=== PATIENT | female | born 1965 | race Caucasian/White ===

== ENCOUNTER 2016-10-12 21:20 | Emergency (ER) | payer OTHER ==
[~2016-10-12] VITALS: Ht 157.5 cm; Wt 66.0 kg
[~2016-10-12 21:20] MED LIST: ALAV10TA PO; CIPR750T10 PO; IBUP-238 PO; LEVO50TA4 PO; TRAM50 PO; ZOCO40TA PO; ZOFR4TAB3 SL
[2016-10-12 21:25] VITALS: BP 162/78; PULSE 68; RESP 16; TEMP 97.7; O2SAT 98
[2016-10-13 00:44] VITALS: O2SAT 98
[2016-10-13] MEDS ORDERED: ONDANSETRON HCL 4 MG/2 ML VIAL IV PUSH ONE (00:45)
[2016-10-13] MEDS ORDERED: SODIUM CHLORID 0.9% 500 ML INJ 500 ML IV ONE (00:45)
[2016-10-13] MEDS ORDERED: KETOROLAC TROMETHAMINE 30 MG/ML (IVP) VIAL IV PUSH ONE (00:45)
[2016-10-13 01:11] LABS: AUTOMATED NEUTROPHIL # 4.5 TH/MM3 (1.8-7.7); BASOPHIL % 0.4 % (0.0-2.0); EOSINOPHIL # 0.5 TH/MM3 (0-0.4); EOSINOPHIL % 5.4 % (0.0-4.0); HEMATOCRIT 33.1 % (35.0-46.0); HEMO FLAGS DIFF FINAL; LYMPH % 34.9 % (9.0-44.0); MEAN CELL VOLUME 80.6 FL (80.0-100.0); MEAN CORPUSCULAR HEMOGLOBIN 26.9 PG (27.0-34.0); MEAN CORPUSCULAR HGB CONC 33.3 % (32.0-36.0); MONO % 6.5 % (0.0-8.0); NEUT % 52.8 % (16.0-70.0); PLATELET COUNT 266 TH/MM3 (150-450); RED BLOOD COUNT 4.11 MIL/MM3 (4.00-5.30); RED CELL DISTRIBUTION WIDTH 13.6 % (11.6-17.2); WHITE BLOOD COUNT 8.6 TH/MM3 (4.0-11.0)
[2016-10-13 01:12] LABS: BLOOD, URINE NEG (NEG); GLUCOSE,URINE NEG (NEG); KETONE, URINE NEG (NEG); NITRITE,URINE NEG (NEG); SQUAMOUS EPITHELIAL CELL URINE 2 /hpf (0-5); URINE COLOR COLORLESS (YELLW/STRAW)
[2016-10-13 01:15] LABS: COMMENT (UR) CULT NOT INDICATED; CULTURE IF INDICATED CULT NOT INDICATED
--- NOTE | 2016-10-13 01:19 | PD ---
HPI Chief Complaint: Back/ Neck Pain or Injury Time Seen by Provider: 00:21 Travel History International Travel<30 days: No Contact w/Intl Traveler<30days: No Traveled to known affect area: No History of Present Illness HPI The patient is a 51 year old female who presents to the [facility] emergency department with a history of back pain that she reports began a week ago. The patient reports that the pain has been associated with urinary frequency and urgency. She reports that the pain radiates around to the right side of the abdomen. She reports the pain is similar to when she had a kidney stone in the past. She denies having any blood in her urine. She denies having any vaginal discharge or unusual vaginal bleeding. She reports that her last menstrual cycle was June 2016. She reports having nausea but no vomiting. She denies having any diarrhea. She reports that she last moved her bowels earlier today. The patient denies recent fevers, cough, congestion, neck pain, chest pain, shortness of breath, or neurologic symptoms. [facility] Past Medical History Narrative Medical The patient's past medical history is significant for a history of pancreatitis , anxiety and depression, history of kidney stones, history of headaches, hyperlipidemia, hypothyroid disorder. Arthritis: No Asthma: No Autoimmune Disease: No Blood Disorders: No Anxiety: Yes Depression: Yes Heart Rhythm Problems: No Cancer: No Cardiovascular Problems: No High Cholesterol: No Chest Pain: No Congestive Heart Failure: No COPD: No Cerebrovascular Accident: No Diabetes: No Diminished Hearing: No Endocrine: No Gastrointestinal Disorders: Yes (PANCREATITIS) GERD: No Genitourinary: Yes Headaches: Yes Hepatitis: No Hiatal Hernia: No Hypertension: No Immune Disorder: No Kidney Stones: Yes Musculoskeletal: No Neurologic: No Psychiatric: Yes Reproductive: No Respiratory: No Immunizations Current: Yes Migraines: No Myocardial Infarction: No Pancreatitis: Yes Renal Failure: No Seizures: No Sleep Apnea: No Thyroid Disease: No Ulcer: No PNEUMOCCOCAL Vaccine (Year): 3 ?: Not : 5 Para: 4 : 1 Tubal Ligation: Yes (2003) Past Surgical History Narrative Surgical The patient's past surgical history is significant for 4 prior C-sections, pancreas surgery, tonsillectomy. Abdominal Surgery: Yes (PANCREATIC SURGERY) Appendectomy: No Cardiac Surgery: No Section: Yes (X 4) Cholecystectomy: No Ear Surgery: No Endocrine Surgery: No Eye Surgery: No Gynecologic Surgery: Yes ( X 4) Oral Surgery: No Pacemaker: No Thoracic Surgery: No Tonsillectomy: Yes Social History Alcohol Use: No Tobacco Use: No Substance Use: No Allergies-Medications (Allergen,Severity, Reaction): Coded Allergies: No Known Allergies (Verified , 10/12/16) Reported Meds & Prescriptions Reported Meds & Active Scripts Active Reported Levothyroxine 50 mcg (Levothyroxine Sodium) 50 Mcg Tab 50 Mcg PO DAILY Zocor 40 mg (Simvastatin) 40 Mg Tab 1 Tab PO HS Review of Systems Except as stated in HPI: all other systems reviewed are Neg General / Constitutional: No: Fever Eyes: No: Visual changes HENT: No: Headaches Cardiovascular: No: Chest Pain or Discomfort Respiratory: No: Shortness of Breath Gastrointestinal: Positive: Nausea, Abdominal Pain, No: Vomiting, Diarrhea, Hematemesis, Hematochezia, Constipation, Changes in Bowel Habits, Indigestion, Loss of Appetite Genitourinary: Positive: Urgency, Frequency, Flank Pain, No: Dysuria, Hematuria Musculoskeletal: No: Pain Skin: No Rash Neurologic: No: Weakness, Focal Abnormalities, Change in Mentation, Slurred Speech, Sensory Disturbance Psychiatric: No: Depression Endocrine: No: Polydipsia Hematologic/Lymphatic: No: Easy Bruising Physical Exam Narrative General: The patient is a well-developed well-nourished female in no acute distress. Head and Neck exam: Head is normocephalic atraumatic. Eyes: EOMI, pupils are equal round and reactive to light. Nose: Midline septum with pink mucous membranes Mouth: Dentition unremarkable. Moist mucus membranes. Posterior oropharynx is not erythematous. No tonsillar hypertrophy. Uvula midline. Airway patent. Neck: No palpable lymphadenopathy. No nuchal rigidity. No thyromegaly. Cardiovascular: Regular rate and rhythm without murmurs, gallops, or rubs. No pulse deficit to the extremities. Lungs: Clear to auscultation bilaterally. No wheezes, rhonchi, or rales. Abdomen: Soft, without tenderness to palpation in all 4 quadrants of the abdomen. No guarding, rebound, or rigidity. Normal bowel sounds are audible. No tenderness on palpation of McBurney's point. Negative Clark's sign. Extremities: No clubbing or cyanosis. The patient has trace pedal edema bilateral lower extremities. 2+ pulses in all 4 extremities. No calf tenderness on palpation. Back: No spinous process tenderness to palpation. Right-sided CVA tenderness on palpation. Neurologic Exam: Grossly nonfocal. Skin Exam: No rash noted. Intact skin that is warm and dry. Data Data Last Documented VS Vital Signs Date Time Temp Pulse Resp B/P Pulse Ox O2 Delivery O2 Flow Rate FiO2 10/13/16 00:44 98 Room Air 10/12/16 21:25 97.7 68 16 162/78 Orders Complete Blood Count With Diff (10/13/16 00:31) Comprehensive Metabolic Panel (10/13/16 00:31) C-Reactive Protein (Crp) (10/13/16 00:31) Lipase (10/13/16 00:31) Urinalysis - C+S If Indicated (10/13/16 00:31) Magnesium (Mg) (10/13/16 00:31) Ct Abd/Pel W/O Iv Contrast (10/13/16 00:31) Iv Access Insert/Monitor (10/13/16 00:31) Ecg Monitoring (10/13/16 00:31) Oximetry (10/13/16 00:31) Ed Urine Pregnancytest Poc (10/13/16 00:31) Sodium Chlorid 0.9% 500 Ml Inj (Ns 500 M (10/13/16 00:45) Ketorolac Inj (Toradol Inj) (10/13/16 00:45) Ondansetron Inj (Zofran Inj) (10/13/16 00:45) Labs Laboratory Tests Test 10/13/16 10/13/16 00:55 01:00 Urine Color COLORLESS Urine Turbidity CLEAR Urine pH 7.0 Urine Specific [place] 1.004 Urine Protein NEG mg/dL Urine Glucose (UA) NEG mg/dL Urine Ketones NEG mg/dL Urine Occult Blood NEG Urine Nitrite NEG Urine Bilirubin NEG Urine Urobilinogen LESS THAN 2.0 MG/DL Urine Leukocyte Esterase NEG Urine RBC LESS THAN 1 /hpf Urine WBC 3 /hpf Urine Squamous Epithelial 2 /hpf Cells Microscopic Urinalysis Comment CULT NOT INDICATED White Blood Count 8.6 TH/MM3 Red Blood Count 4.11 MIL/MM3 Hemoglobin 11.1 GM/DL Hematocrit 33.1 % Mean Corpuscular Volume 80.6 FL Mean Corpuscular Hemoglobin 26.9 PG Mean Corpuscular Hemoglobin 33.3 % Concent Red Cell Distribution Width 13.6 % Platelet Count 266 TH/MM3 Mean Platelet Volume 7.8 FL Neutrophils (%) (Auto) 52.8 % Lymphocytes (%) (Auto) 34.9 % Monocytes (%) (Auto) 6.5 % Eosinophils (%) (Auto) 5.4 % Basophils (%) (Auto) 0.4 % Neutrophils # (Auto) 4.5 TH/MM3 Lymphocytes # (Auto) 3.0 TH/MM3 Monocytes # (Auto) 0.6 TH/MM3 Eosinophils # (Auto) 0.5 TH/MM3 Basophils # (Auto) 0.0 TH/MM3 CBC Comment DIFF FINAL Differential Comment Sodium Level 139 MEQ/L Potassium Level 3.5 MEQ/L Chloride Level 108 MEQ/L Carbon Dioxide Level 25.2 MEQ/L Anion Gap 6 MEQ/L Blood Urea Nitrogen 15 MG/DL Creatinine 0.69 MG/DL Estimat Glomerular Filtration 90 ML/MIN Rate Random Glucose 95 MG/DL Calcium Level 8.2 MG/DL Magnesium Level 2.2 MG/DL Total Bilirubin 0.4 MG/DL Aspartate Amino Transf 19 U/L (AST/SGOT) Alanine Aminotransferase 29 U/L (ALT/SGPT) Alkaline Phosphatase 96 U/L C-Reactive Protein 0.56 MG/DL Total Protein 7.4 GM/DL Albumin 3.2 GM/DL Lipase 289 U/L [facility] Medical Decision Making Medical Screen Exam Complete: Yes Emergency Medical Condition: Yes Medical Record Reviewed: Yes Interpretation(s) Last Impressions Abdomen/Pelvis CT 10/13/16 0031 Signed Impressions: Service Date/Time: Thursday, October 13, 2016 01:44 - CONCLUSION: Stone within the right kidney. Cholecystectomy clips. No etiology for abdominal pain identified Wilman Blackwell MD Differential Diagnosis Pyelonephritis, versus kidney stone, versus musculoskeletal strain, versus appendicitis Narrative Course During the course of the patients emergency department visit, the patients history, examination, and differential diagnosis were reviewed with the patient. The patient had IV access obtained and blood work sent for analysis. The patient was placed on a youth nutritional monitor with oximetry and blood pressure monitoring. A CT scan of the abdomen and pelvis was ordered. The patient was initially provided normal saline a 500 mL bolus 1, Toradol 15 mg IV, Zofran 4 mg IV. The patients laboratory studies were reviewed and remarkable for a white count of 8.6, hemoglobin 11.1, platelets 266 with 5.4 eosinophils, CMP is remarkable for chloride of 108, calcium 8.2, C-reactive protein 0.56, lipase 289, urinalysis within normal limits Radiology studies were reviewed and remarkable for a CT scan of the abdomen and pelvis that shows a stone within the right kidney, cholecystectomy clips, no etiology for abdominal pain identified. The patient's symptoms could be related to musculoskeletal strain, versus renal colic from the right sided kidney stone. The patient will be discharged home with a prescription for pain medication and close follow-up with her primary care physician. The patient is resting comfortably and feels better, is alert and in no distress. The patients results and examination findings were discussed with the patient. The repeat examination is unremarkable and benign. The history, exam, diagnostic testing, and current condition do not suggest any significant pathology to warrant further testing, continued ED treatment, admission, or surgical evaluation at this point. The vital signs have been stable. The patient does not have uncontrollable pain, intractable vomiting, or other significant symptoms. The patient's condition is stable and appropriate for discharge. The patient will pursue further outpatient evaluation with a primary care physician or other designated or consulting physician as indicated in the discharge instructions. The patient expressed understanding and was agreeable with this plan. Diagnosis Primary Impression: Renal colic on right side Referrals: Primary Care Physician 3 days Patient Instructions: General Instructions, Renal Colic (ED) Med/Other Pt SpecificInfo: Prescription(s) given Scripts Naproxen DR (Naproxen EC)500 Mg [id number] Mg PO BID PRN (PAIN SCALE 1 TO 4) #10 TAB Ref 0 Prov:Kanika Dorantes MD 10/13/16 Hydrocodone-Acetaminophen (Lortab)5-325 Mg Tab1 Tab PO Q6H PRN (PAIN GREATER THAN 5) #12 TAB Ref 0 Prov:Kanika Dorantes MD 10/13/16 Disposition: DISCHARGE HOME Condition: Stable Kanika Dorantes MD Oct 13, 2016 01:18
[2016-10-13 01:32] LABS: ANION GAP 6 MEQ/L (5-15); AST (GOT) 19 U/L (15-37); BICARBONATE 25.2 MEQ/L (21.0-32.0); BLOOD UREA NITROGEN 15 MG/DL (7-18); CHLORIDE 108 MEQ/L (98-107); GLOMERULAR FILTRATION RATE 90 ML/MIN (>89); MAGNESIUM 2.2 MG/DL (1.5-2.5); POTASSIUM 3.5 MEQ/L (3.5-5.1); SODIUM (NA) 139 MEQ/L (136-145)
[2016-10-13 01:34] LABS: ALKALINE PHOSPHATASE 96 U/L (45-117); ALT (GPT) 29 U/L (10-53); TOTAL BILIRUBIN ADULT 0.4 MG/DL (0.2-1.0)
--- NOTE | 2016-10-13 01:57 | RADRPT ---
EXAM DATE/TIME: 10/13/2016 01:44 [facility] COMPARISON: CT ABDOMEN & PELVIS W/O CONTRAST, February 13, 2016, 12:48. INDICATIONS : Lower back pain radiating down legs. ORAL CONTRAST: No oral contrast ingested. RADIATION DOSE: 10.82 CTDIvol (mGy) MEDICAL HISTORY : Pancreatitis. SURGICAL HISTORY : Tonsillectomy. section.Tubal ligation.Pancreatic surgery. ENCOUNTER: Initial ACUITY: 2 days PAIN SCALE: 5/10 LOCATION: Bilateral flank TECHNIQUE: Volumetric scanning of the abdomen and pelvis was performed. Using automated exposure control and ad justment of the mA and/or kV according to patient size, radiation dose was kept as low as reasonably achievable to obtain optimal diagnostic quality images. FINDINGS: LOWER LUNGS: The visualized lower lungs are clear. LIVER: Homogeneous density without lesion. There is no dilation of the biliary tree. Status post cholecyste ctomy. SPLEEN: Normal size without lesion. PANCREAS: Within normal limits. KIDNEYS: Normal in size and shape. There is no mass, or hydronephrosis. Small stone mid pole right kidney ADRENAL GLANDS: Within normal limits. VASCULAR: There is no aortic aneurysm. BOWEL/MESENTERY: The stomach, small bowel, and colon demonstrate no acute abnormality. There is no free intraperitone al air or fluid. ABDOMINAL WALL: Within normal limits. RETROPERITONEUM: There is no lymphadenopathy. BLADDER: No wall thickening or mass. REPRODUCTIVE: Within normal limits. Low-density cysts within the cervix likely nabothian cysts. Bilateral ovarian c ysts left greater than right. INGUINAL: There is no lymphadenopathy or hernia. MUSCULOSKELETAL: Within normal limits for patient age. CONCLUSION: Stone within the right kidney. Cholecystectomy clips. No etiology for abdominal pain identified Wilman Blackwell MD on October 13, 2016 at 1:54 Board Certified Radiologist. This report was verified electronically.
[2016-10-13] MEDS ORDERED: HYDR-3533 PO (02:33)
[2016-10-13] MEDS ORDERED: NAPR1TAB34 PO (02:33)
[2016-12-24] MEDS ORDERED: FEXO180T PO (08:44)
[2016-12-24] MEDS ORDERED: FLUT50SP EACH NARE (08:44)
[2016-12-24] MEDS ORDERED: MELO7.5T4 PO (08:44)
[2016-12-24] MEDS ORDERED: ZOCO20TA PO (08:44)
[2016-12-24] MEDS ORDERED: LEVO75TA3 PO (08:44)
== END 2016-10-13 03:51 | disposition home or self-care (01) ==
LOC: NEPE 21:20
DX: N23 Unspecified renal colic (principal); R11.0 Nausea; M54.2 Cervicalgia; K85.90 Acute pancreatitis without necrosis or infection, unspecified
CPT/HCPCS: 74176; 80053; 81001; 83690; 83735; 84703; 85025; 86140; 96361; 96374; 96375; 99284; J1885; J2405; J7040

== ENCOUNTER 2016-11-08 15:34 | Emergency (ER) | payer OTHER ==
[~2016-11-08] VITALS: Ht 149.9 cm; Wt 70.5 kg
[~2016-11-08 15:34] MED LIST changes: -ALAV10TA PO; -CIPR750T10 PO; +HYDR-3533 PO; -IBUP-238 PO; +NAPR1TAB34 PO; -TRAM50 PO; -ZOFR4TAB3 SL
[2016-11-08 17:10] LABS: BLOOD, URINE LARGE (NEG); GLUCOSE,URINE NEG (NEG); KETONE, URINE NEG (NEG); NITRITE,URINE NEG (NEG); PH, URINE 6.5 (5.0-8.5); SQUAMOUS EPITHELIAL CELL URINE 9 /hpf (0-5); URINE COLOR YELLOW (YELLW/STRAW)
[2016-11-08] MEDS ORDERED: SODIUM CHLORIDE 0.9% FLUSH 10 ML FLUSH IV FLUSH PRN (18:15)
[2016-11-08] MEDS ORDERED: KETOROLAC TROMETHAMINE 30 MG/ML (IVP) VIAL IVP ONE (18:15)
[2016-11-08 18:31] LABS: AUTOMATED NEUTROPHIL # 3.8 TH/MM3 (1.8-7.7); BASOPHIL % 0.3 % (0.0-2.0); EOSINOPHIL # 0.4 TH/MM3 (0-0.4); EOSINOPHIL % 5.3 % (0.0-4.0); HEMATOCRIT 34.5 % (35.0-46.0); HEMO FLAGS DIFF FINAL; LYMPH % 39.4 % (9.0-44.0); LYMPHOCYTE # 3.2 TH/MM3 (1.0-4.8); MEAN CELL VOLUME 80.7 FL (80.0-100.0); MEAN CORPUSCULAR HEMOGLOBIN 26.8 PG (27.0-34.0); MEAN CORPUSCULAR HGB CONC 33.2 % (32.0-36.0); MONO % 7.3 % (0.0-8.0); NEUT % 47.7 % (16.0-70.0); PLATELET COUNT 272 TH/MM3 (150-450); RED BLOOD COUNT 4.27 MIL/MM3 (4.00-5.30); RED CELL DISTRIBUTION WIDTH 13.9 % (11.6-17.2)
[2016-11-08 18:49] LABS: BICARBONATE 27.8 MEQ/L (21.0-32.0); POTASSIUM 3.4 MEQ/L (3.5-5.1)
[2016-11-08 19:15] VITALS: RESP 16
[2016-11-08] MEDS ORDERED: MOBI15TA PO (19:33)
--- NOTE | 2016-11-08 19:33 | PD ---
HPI Chief Complaint: Flank/Kidney Pain Time Seen by Provider: 16:45 Travel History International Travel<30 days: No Contact w/Intl Traveler<30days: No Traveled to known affect area: No History of Present Illness HPI 51 year old female with a 3 day hx of right flank pain & hematuria. Patient has hx of kidney stones on the right side. She denies fever, chills, dysuria, ABD pain, or N/V. She has been seen multiple times in the ED for the same complaint. Last 2 CT scans show a 4mm stone within the R kidney, no obstruction. PMH:nephrolithiasis, hyperlipidemia, hypothyroid. Home meds: levothyroxine & norco PRN. PFSH Past Medical History Arthritis: No Asthma: No Autoimmune Disease: No Blood Disorders: No Anxiety: Yes Depression: Yes Heart Rhythm Problems: No Cancer: No Cardiovascular Problems: No High Cholesterol: No Chest Pain: No Congestive Heart Failure: No COPD: No Cerebrovascular Accident: No Diabetes: No Diminished Hearing: No Endocrine: No Gastrointestinal Disorders: Yes (PANCREATITIS) GERD: No Genitourinary: Yes Headaches: Yes Hepatitis: No Hiatal Hernia: No Hypertension: No Immune Disorder: No Kidney Stones: Yes Musculoskeletal: No Neurologic: No Psychiatric: Yes Reproductive: No Respiratory: No Immunizations Current: Yes Migraines: No Myocardial Infarction: No Pancreatitis: Yes Renal Failure: No Seizures: No Sleep Apnea: No Thyroid Disease: No Ulcer: No PNEUMOCCOCAL Vaccine (Year): 3 ?: Not : 5 Para: 4 : 1 Tubal Ligation: Yes (2003) Past Surgical History Abdominal Surgery: Yes (PANCREATIC SURGERY) Appendectomy: No Cardiac Surgery: No Section: Yes (X 4) Cholecystectomy: No Ear Surgery: No Endocrine Surgery: No Eye Surgery: No Gynecologic Surgery: Yes ( X 4) Oral Surgery: No Pacemaker: No Thoracic Surgery: No Tonsillectomy: Yes Social History Alcohol Use: No Tobacco Use: No Substance Use: No Allergies-Medications (Allergen,Severity, Reaction): Coded Allergies: No Known Allergies (Verified , 10/12/16) Reported Meds & Prescriptions Reported Meds & Active Scripts Active Mobic (Meloxicam) 15 Mg Tab 15 Mg PO DAILY PRN Naproxen EC (Naproxen) 500 Mg Tabdr 500 Mg PO BID PRN Lortab (Hydrocodone-Acetaminophen) 5-325 Mg Tab 1 Tab PO Q6H PRN Reported Levothyroxine 50 mcg (Levothyroxine Sodium) 50 Mcg Tab 50 Mcg PO DAILY Zocor 40 mg (Simvastatin) 40 Mg Tab 1 Tab PO HS Review of Systems Except as stated in HPI: all other systems reviewed are Neg Physical Exam Narrative GENERAL: well appearing female. No distress SKIN: Warm and dry. HEAD: Normocephalic. EYES: No scleral icterus. No injection or drainage. NECK: Supple, trachea midline. No JVD or lymphadenopathy. CARDIOVASCULAR: Regular rate and rhythm without murmurs, gallops, or rubs. RESPIRATORY: Breath sounds equal bilaterally. No accessory muscle use. GASTROINTESTINAL: Abdomen soft, non-tender, nondistended. MUSCULOSKELETAL: No cyanosis, or edema. BACK: Nontender without obvious deformity. Mild R CVA tenderness. Data Data Last Documented VS Vital Signs Date Time Temp Pulse Resp B/P Pulse Ox O2 Delivery O2 Flow Rate FiO2 11/08/16 19:15 16 Orders Ua Includes Microscopic (11/08/16 16:41) Ed Poc Ultrasound (11/08/16 ) Basic Metabolic Panel (Bmp) (11/08/16 18:04) Complete Blood Count With Diff (11/08/16 18:04) Iv Access Insert/Monitor (11/08/16 18:04) Sodium Chloride 0.9% Flush (Ns Flush) (11/08/16 18:15) Ketorolac Inj (Toradol Inj) (11/08/16 18:15) Labs Laboratory Tests Test 11/08/16 11/08/16 16:45 18:12 Urine Color YELLOW Urine Turbidity HAZY Urine pH 6.5 Urine Specific [place] 1.016 Urine Protein NEG mg/dL Urine Glucose (UA) NEG mg/dL Urine Ketones NEG mg/dL Urine Occult Blood LARGE Urine Nitrite NEG Urine Bilirubin NEG Urine Urobilinogen LESS THAN 2.0 MG/DL Urine Leukocyte Esterase NEG Urine RBC 5 /hpf Urine WBC 5 /hpf Urine Squamous Epithelial 9 /hpf Cells Microscopic Urinalysis Comment White Blood Count 8.0 TH/MM3 Red Blood Count 4.27 MIL/MM3 Hemoglobin 11.4 GM/DL Hematocrit 34.5 % Mean Corpuscular Volume 80.7 FL Mean Corpuscular Hemoglobin 26.8 PG Mean Corpuscular Hemoglobin 33.2 % Concent Red Cell Distribution Width 13.9 % Platelet Count 272 TH/MM3 Mean Platelet Volume 8.2 FL Neutrophils (%) (Auto) 47.7 % Lymphocytes (%) (Auto) 39.4 % Monocytes (%) (Auto) 7.3 % Eosinophils (%) (Auto) 5.3 % Basophils (%) (Auto) 0.3 % Neutrophils # (Auto) 3.8 TH/MM3 Lymphocytes # (Auto) 3.2 TH/MM3 Monocytes # (Auto) 0.6 TH/MM3 Eosinophils # (Auto) 0.4 TH/MM3 Basophils # (Auto) 0.0 TH/MM3 CBC Comment DIFF FINAL Differential Comment Sodium Level 143 MEQ/L Potassium Level 3.4 MEQ/L Chloride Level 109 MEQ/L Carbon Dioxide Level 27.8 MEQ/L Anion Gap 6 MEQ/L Blood Urea Nitrogen 16 MG/DL Creatinine 0.67 MG/DL Estimat Glomerular Filtration 94 ML/MIN Rate Random Glucose 107 MG/DL Calcium Level 8.0 MG/DL MDM Medical Decision Making Medical Screen Exam Complete: Yes Emergency Medical Condition: Yes Medical Record Reviewed: Yes Differential Diagnosis nephrolithiasis vs hydronephrosis vs pyelonephrosis Narrative Course 51 year old female with a 3 days hx of right flank pain. Hx of intermittent right flank pain, treated multiple times for same. She is well appearing, mild discomfort with CVA palpation only. EMR reviewed. CBC: unremarkable w/ exception of Hgb 11 BMP: unremarkable UA : 5 RBC, -leuk, -nitrates US R kidney: no hydronephrosis given patients exam & diagnostic findings patient will be discharged home with Dx of R flank pain, no evidence of infection or obstruction, NSAID for pain. F/ U with PCP/Nephrology. Diagnosis Primary Impression: Right flank pain Referrals: Kaylin Salazar MD Patient Instructions: General Instructions Med/Other Pt SpecificInfo: Prescription(s) given Scripts Meloxicam (Mobic)15 Mg Tab15 Mg PO DAILY PRN (PAIN SCALE 1 TO 5) #10 TAB Ref 0 Prov:Katharina Irizarry 11/08/16 Disposition: 01 DISCHARGE HOME Condition: Stable Katharina Irizarry November 08, 2016 19:33 Katharina Irizarry November 08, 2016 19:33
--- NOTE | 2016-11-08 20:56 | PD ---
Data Data Last Documented VS Vital Signs Date Time Temp Pulse Resp B/P Pulse Ox O2 Delivery O2 Flow Rate FiO2 11/08/16 19:15 16 Orders Ua Includes Microscopic (11/08/16 16:41) Ed Poc Ultrasound (11/08/16 ) Basic Metabolic Panel (Bmp) (11/08/16 18:04) Complete Blood Count With Diff (11/08/16 18:04) Iv Access Insert/Monitor (11/08/16 18:04) Sodium Chloride 0.9% Flush (Ns Flush) (11/08/16 18:15) Ketorolac Inj (Toradol Inj) (11/08/16 18:15) Labs Laboratory Tests Test 11/08/16 11/08/16 16:45 18:12 Urine Color YELLOW Urine Turbidity HAZY Urine pH 6.5 Urine Specific [place] 1.016 Urine Protein NEG mg/dL Urine Glucose (UA) NEG mg/dL Urine Ketones NEG mg/dL Urine Occult Blood LARGE Urine Nitrite NEG Urine Bilirubin NEG Urine Urobilinogen LESS THAN 2.0 MG/DL Urine Leukocyte Esterase NEG Urine RBC 5 /hpf Urine WBC 5 /hpf Urine Squamous Epithelial 9 /hpf Cells Microscopic Urinalysis Comment White Blood Count 8.0 TH/MM3 Red Blood Count 4.27 MIL/MM3 Hemoglobin 11.4 GM/DL Hematocrit 34.5 % Mean Corpuscular Volume 80.7 FL Mean Corpuscular Hemoglobin 26.8 PG Mean Corpuscular Hemoglobin 33.2 % Concent Red Cell Distribution Width 13.9 % Platelet Count 272 TH/MM3 Mean Platelet Volume 8.2 FL Neutrophils (%) (Auto) 47.7 % Lymphocytes (%) (Auto) 39.4 % Monocytes (%) (Auto) 7.3 % Eosinophils (%) (Auto) 5.3 % Basophils (%) (Auto) 0.3 % Neutrophils # (Auto) 3.8 TH/MM3 Lymphocytes # (Auto) 3.2 TH/MM3 Monocytes # (Auto) 0.6 TH/MM3 Eosinophils # (Auto) 0.4 TH/MM3 Basophils # (Auto) 0.0 TH/MM3 CBC Comment DIFF FINAL Differential Comment Sodium Level 143 MEQ/L Potassium Level 3.4 MEQ/L Chloride Level 109 MEQ/L Carbon Dioxide Level 27.8 MEQ/L Anion Gap 6 MEQ/L Blood Urea Nitrogen 16 MG/DL Creatinine 0.67 MG/DL Estimat Glomerular Filtration 94 ML/MIN Rate Random Glucose 107 MG/DL Calcium Level 8.0 MG/DL MDM Supervised Visit with SONJA: Yes Narrative Course The history, exam, and medical decision-making in the associated midlevel provider note were completed with my assistance. I reviewed and agree with the findings presented. I attest that I had a [id number] encounter with the patient on the same day, and personally performed and documented my assessment and findings in the medical record. *My assessment and Findings: This is a 51-year-old female who presents to the emergency department with right flank pain. She's had this multiple times in the past. Multiple times in the past she's had CT scans which demonstrate a stone in the right kidney but they've never demonstrated a ureteral stones explain the patient's pain. I suspect her pain is musculoskeletal in nature. She does have a little bit of red blood cells urine. I told her she should follow-up with the urologist as an outpatient to be evaluated for possible bladder cancer. She was given Toradol and she feels much better. I did perform a bedside ultrasound which demonstrates no hydronephrosis. Don't think a repeat CT imaging would benefit this patient given she's had some any CTs in the past but don't give an explanation for her pain. Patient feels much better upon discharge. Diagnosis Primary Impression: Right flank pain Referrals: Kaylin Salazar MD Patient Instructions: General Instructions Departure Forms: Tests/Procedures Scripts Meloxicam (Mobic)15 Mg Tab15 Mg PO DAILY PRN (PAIN SCALE 1 TO 5) #10 TAB Ref 0 Prov:Katharina IrizarryP 11/08/16 Disposition: 01 DISCHARGE HOME Condition: Stable Misty Arce MD November 08, 2016 20:56
[2016-12-24] MEDS ORDERED: ZOCO20TA PO (08:44)
[2016-12-24] MEDS ORDERED: FEXO180T PO (08:44)
[2016-12-24] MEDS ORDERED: MELO7.5T4 PO (08:44)
[2016-12-24] MEDS ORDERED: LEVO75TA3 PO (08:44)
[2016-12-24] MEDS ORDERED: FLUT50SP EACH NARE (08:44)
== END 2016-11-08 20:17 | disposition home or self-care (01) ==
LOC: NEPD 15:34
DX: R10.9 Unspecified abdominal pain (principal)
CPT/HCPCS: 80048; 81001; 85025; 96374; 99284; J1885

== ENCOUNTER → 2017-01-14 | Day surgery (SDC) | payer OTHER ==
[~2017-01-14] VITALS: Ht 149.9 cm; Wt 71.5 kg
[~2017-01-14] MED LIST changes: +ACETAMINOPHEN/HYDROcodone 325 MG/5 MG TAB ONE; +ACETAMINOPHEN/HYDROcodone 325 MG/5 MG TAB PO PRN; +DO NOT ADM ANY ANTICOAGULANT DRUGS PRN; +FEXO180T PO; +FLUT50SP EACH NARE; -HYDR-3533 PO; +HYDR-3534 PO; +LACTATED RINGER'S 1000 ML INJ 1,000 ML ONE; -LEVO50TA4 PO; +LEVO75TA3 PO; +MIDAZOLAM HCL 2 MG/2 ML VIAL ONE; +MORPHINE SULFATE 4 MG/ML INJ IV PUSH PRN; -NAPR1TAB34 PO; +ONDANSETRON HCL 4 MG/2 ML VIAL IV PUSH PRN; +PROPOFOL 200 MG/20 ML AMP IV ONE; +SODIUM CHLORIDE 0.9% INJ 100 ML ONE; +ZOCO20TA PO; -ZOCO40TA PO; +ceFAZolin INJ 1,000 MG VIAL ONE
[2017-01-14 06:24] LABS: AUTOMATED NEUTROPHIL # 3.3 TH/MM3 (1.8-7.7); BASOPHIL % 0.6 % (0.0-2.0); EOSINOPHIL # 0.4 TH/MM3 (0-0.4); EOSINOPHIL % 5.2 % (0.0-4.0); HEMATOCRIT 33.6 % (35.0-46.0); HEMO FLAGS DIFF FINAL; LYMPH % 35.2 % (9.0-44.0); LYMPHOCYTE # 2.4 TH/MM3 (1.0-4.8); MEAN CELL VOLUME 81.7 FL (80.0-100.0); MEAN CORPUSCULAR HEMOGLOBIN 27.7 PG (27.0-34.0); MEAN CORPUSCULAR HGB CONC 33.9 % (32.0-36.0); PLATELET COUNT 292 TH/MM3 (150-450); RED BLOOD COUNT 4.11 MIL/MM3 (4.00-5.30); RED CELL DISTRIBUTION WIDTH 13.5 % (11.6-17.2); WHITE BLOOD COUNT 6.8 TH/MM3 (4.0-11.0)
[2017-01-14 06:26] VITALS: BP 109/75; PULSE 65; RESP 16; TEMP 97.6; O2SAT 98
--- NOTE | 2017-01-14 06:30 | RADRPT ---
EXAM DATE/TIME: 01/14/2017 05:49 [facility] COMPARISON: No previous studies available for comparison. INDICATIONS : Pre op lithotripsy. MEDICAL HISTORY : None. SURGICAL HISTORY : None. ENCOUNTER: Initial ACUITY: 1 day PAIN SCORE: 0/10 LOCATION: Bilateral abdomen FINDINGS: Supine view of the abdomen was performed. The abdominal bowel gas pattern is normal. 6 mm calcificat ion overlying the midpole right kidney. No definite calcifications overlying the left kidney. Surgica l clips in the quadrant.. The osseous structures are unremarkable. CONCLUSION: 6 mm calcification midpole right kidney. Matthew Bazan MD on January 14, 2017 at 6:28 Board Certified Radiologist. This report was verified electronically.
--- NOTE | 2017-01-14 08:30 | PD.OP ---
Operative Report Date of Surgery: Jan 14, 2017 Preoperative Diagnosis: Right lower pole renal stone Postoperative Diagnosis: Same Procedure: Right extracorporeal shockwave lithotripsy Anesthesia: TIVA Surgeon: Sachin Gonzalez [employer] Tester(s): None Resident Surgeon: None Operation and Findings: 52-year-old female with findings of 5.6 mm right lower pole stone admitted to undergo elective extracorporeal shockwave lithotripsy. Risk and benefits were discussed preoperatively and the patient is willing to proceed. Patient was brought to the operating room and identified by myself as Janis Haro. She was placed in supine position on the operating table, received TIVA anesthesia, and preprocedure bites were given. Stone was localized under fluoroscopic and ultrasonic image guidance. Patient then went on to receive a total of 2500 shocks with good fragmentation of stone visualized. She tolerated the procedure well and was woken and transferred recovery room in stable condition. She'll follow-up in 2 weeks and obtain a KUB x-ray prior. Sachin Gonzalez DO Jan 14, 2017 08:30
--- NOTE | 2017-01-14 08:37 | EKG ---
Date Performed: 01/14/2017 Time Performed: 06:18:40 PTAGE: 52 years EKG: Sinus rhythm NORMAL ECG PREVIOUS TRACING : 01/02/2015 21.05 DOCTOR: Wilman Pinto Interpretating Date/Time 01/14/2017 08:35:30
[2017-01-14 09:55] VITALS: BP 92/60; PULSE 64; RESP 20; TEMP 97.7; O2SAT 99
== END | disposition home or self-care (01) ==
LOC: HSDC 05:11
PROVIDERS: ATTEND Urology
DX: N20.0 Calculus of kidney (principal); Z01.810 Encounter for preprocedural cardiovascular examination
CPT/HCPCS: 50590; 74000; 85025; 93005; J0690; J2250; J7120

== ENCOUNTER 2017-02-10 19:06 | Observation (INO) | payer OTHER ==
[~2017-02-10 19:06] MED LIST changes: -ACETAMINOPHEN/HYDROcodone 325 MG/5 MG TAB ONE; -ACETAMINOPHEN/HYDROcodone 325 MG/5 MG TAB PO PRN; -DO NOT ADM ANY ANTICOAGULANT DRUGS PRN; -LACTATED RINGER'S 1000 ML INJ 1,000 ML ONE; -MIDAZOLAM HCL 2 MG/2 ML VIAL ONE; -MORPHINE SULFATE 4 MG/ML INJ IV PUSH PRN; -ONDANSETRON HCL 4 MG/2 ML VIAL IV PUSH PRN; -PROPOFOL 200 MG/20 ML AMP IV ONE; -SODIUM CHLORIDE 0.9% INJ 100 ML ONE; -ceFAZolin INJ 1,000 MG VIAL ONE
[2017-02-10 19:09] VITALS: BP 153/73; PULSE 82; RESP 16; TEMP 97.5; O2SAT 99
[2017-02-10 22:55] VITALS: BP 140/81; PULSE 71; RESP 14; O2SAT 99
[2017-02-10] MEDS ORDERED: ONDANSETRON HCL 4 MG/2 ML VIAL IVP ONE (23:00)
[2017-02-10] MEDS ORDERED: SODIUM CHLORIDE 0.9% FLUSH 10 ML FLUSH IV FLUSH PRN (23:00)
[2017-02-10] MEDS ORDERED: SODIUM CHLOR 0.9% 1000 ML INJ 1,000 ML IV SCH (23:00)
[2017-02-10] MEDS ORDERED: MORPHINE SULFATE 8 MG/ML INJ IV PUSH ONE (23:00)
[2017-02-10 23:41] LABS: AUTOMATED NEUTROPHIL # 4.3 TH/MM3 (1.8-7.7); BASOPHIL % 0.5 % (0.0-2.0); EOSINOPHIL # 0.4 TH/MM3 (0-0.4); EOSINOPHIL % 4.2 % (0.0-4.0); HEMATOCRIT 32.2 % (35.0-46.0); HEMO FLAGS DIFF FINAL; LYMPH % 35.8 % (9.0-44.0); MEAN CELL VOLUME 80.4 FL (80.0-100.0); MEAN CORPUSCULAR HEMOGLOBIN 28.1 PG (27.0-34.0); MEAN CORPUSCULAR HGB CONC 34.9 % (32.0-36.0); MONO % 8.5 % (0.0-8.0); PLATELET COUNT 286 TH/MM3 (150-450); WHITE BLOOD COUNT 8.4 TH/MM3 (4.0-11.0)
[2017-02-11 00:13] LABS: ANION GAP 8 MEQ/L (5-15)
[2017-02-11 00:16] LABS: ALKALINE PHOSPHATASE 114 U/L (45-117); ALT (GPT) 36 U/L (10-53); AST (GOT) 22 U/L (15-37); BICARBONATE 24.4 MEQ/L (21.0-32.0); BLOOD UREA NITROGEN 13 MG/DL (7-18); CHLORIDE 106 MEQ/L (98-107); GLOMERULAR FILTRATION RATE 82 ML/MIN (>89); SODIUM (NA) 138 MEQ/L (136-145); TOTAL BILIRUBIN ADULT 0.4 MG/DL (0.2-1.0)
[2017-02-11 00:17] LABS: POTASSIUM 2.9 MEQ/L (3.5-5.1)
--- NOTE | 2017-02-11 00:44 | PD ---
HPI Chief Complaint: Abdominal Pain Time Seen by Provider: 22:47 Travel History International Travel<30 days: No Contact w/Intl Traveler<30days: No Traveled to known affect area: No History of Present Illness HPI 52-year-old female said about a day and a half of increasing abdominal pain. The pain is now constant. It's located in the right lower abdomen. Associated symptoms include nausea. The pain is worse with palpation. No similar prior pain has occurred. She's had no fever or diarrhea or vomiting. There is no radiation. Urination has been normal. PFSH Past Medical History Arthritis: No Asthma: No Autoimmune Disease: No Blood Disorders: No Anxiety: Yes Depression: Yes Heart Rhythm Problems: No Cancer: No Cardiovascular Problems: No High Cholesterol: No Chest Pain: No Congestive Heart Failure: No COPD: No Cerebrovascular Accident: No Diabetes: No Diminished Hearing: No Endocrine: No Gastrointestinal Disorders: Yes (PANCREATITIS) GERD: No Genitourinary: No Headaches: Yes Hepatitis: No Hiatal Hernia: No Hypertension: No Immune Disorder: No Kidney Stones: Yes Musculoskeletal: No Neurologic: No Psychiatric: No Reproductive: No Respiratory: No Immunizations Current: Yes Migraines: No Myocardial Infarction: No Pancreatitis: Yes Renal Failure: No Seizures: No Sleep Apnea: No Thyroid Disease: Yes Ulcer: No Influenza Vaccination: No PNEUMOCCOCAL Vaccine (Year): 3 ?: Not : 5 Para: 4 : 1 Tubal Ligation: Yes (2003) Past Surgical History Abdominal Surgery: Yes (PANCREATIC SURGERY) AICD: No Appendectomy: No Cardiac Surgery: No Section: Yes (X 4) Cholecystectomy: No Ear Surgery: No Endocrine Surgery: No Eye Surgery: No Gynecologic Surgery: Yes ( X 4) Joint Replacement: No Oral Surgery: No Pacemaker: No Thoracic Surgery: No Tonsillectomy: Yes Other Surgery: Yes Social History Alcohol Use: No Tobacco Use: No Substance Use: No Allergies-Medications (Allergen,Severity, Reaction): Coded Allergies: No Known Allergies (Verified , 02/06/17) Reported Meds & Prescriptions Reported Meds & Active Scripts Active Reported Fluticasone Nasal [place] 50 Mcg/Act Naspr 50 Mcg EACH NARE BID 50 mcg/spray Fexofenadine (Fexofenadine HCl) 180 Mg Tab 180 Mg PO DAILY PRN Zocor (Simvastatin) 20 Mg Tab 20 Mg PO DAILY Levothyroxine (Levothyroxine Sodium) 75 Mcg Tab 75 Mcg PO DAILY Review of Systems Except as stated in HPI: all other systems reviewed are Neg Physical Exam Narrative GENERAL: 52-year-old female well-nourished well-developed, Indian-speaking, patient chose to have translation provided by family member in the exam room SKIN: Warm and dry. HEAD: Atraumatic. Normocephalic. EYES: Pupils equal and round. No scleral icterus. No injection or drainage. ENT: No nasal bleeding or discharge. Mucous membranes pink and moist. NECK: Trachea midline. No JVD. CARDIOVASCULAR: Regular rate and rhythm. RESPIRATORY: No accessory muscle use. Clear to auscultation. Breath sounds equal bilaterally. GASTROINTESTINAL: Soft. Tenderness to palpation in the right lower abdomen. MUSCULOSKELETAL: Extremities without clubbing, cyanosis, or edema. No obvious deformities. NEUROLOGICAL: Awake and alert. No obvious cranial nerve deficits. Motor grossly within normal limits. Five out of 5 muscle strength in the arms and legs. Normal speech. PSYCHIATRIC: Appropriate mood and affect; insight and judgment normal. Data Data Last Documented VS Vital Signs Date Time Temp Pulse Resp B/P Pulse Ox O2 Delivery O2 Flow Rate FiO2 02/10/17 22:55 71 14 140/81 99 Room Air 02/10/17 19:09 97.5 Vital signs reviewed Orders Complete Blood Count With Diff (02/10/17 23:00) Comprehensive Metabolic Panel (02/10/17 23:00) Lipase (02/10/17 23:00) Iv Access Insert/Monitor (02/10/17 23:00) Ecg Monitoring (02/10/17 23:00) Oximetry (02/10/17 23:00) Ondansetron Inj (Zofran Inj) (02/10/17 23:00) Sodium Chlor 0.9% 1000 Ml Inj (Ns 1000 M (02/10/17 23:00) Sodium Chloride 0.9% Flush (Ns Flush) (02/10/17 23:00) Morphine Inj (Morphine Inj) (02/10/17 23:00) Ct Abd/Pel W Iv Contrast(Rout) (02/11/17 ) Urinalysis - C+S If Indicated (02/11/17 00:54) Potassium Chlor 20 Meq Premix (Kcl 20 Me (02/11/17 01:00) Labs Laboratory Tests Test 02/10/17 23:20 White Blood Count 8.4 TH/MM3 Red Blood Count 4.00 MIL/MM3 Hemoglobin 11.2 GM/DL Hematocrit 32.2 % Mean Corpuscular Volume 80.4 FL Mean Corpuscular Hemoglobin 28.1 PG Mean Corpuscular Hemoglobin 34.9 % Concent Red Cell Distribution Width 13.0 % Platelet Count 286 TH/MM3 Mean Platelet Volume 8.4 FL Neutrophils (%) (Auto) 51.0 % Lymphocytes (%) (Auto) 35.8 % Monocytes (%) (Auto) 8.5 % Eosinophils (%) (Auto) 4.2 % Basophils (%) (Auto) 0.5 % Neutrophils # (Auto) 4.3 TH/MM3 Lymphocytes # (Auto) 3.0 TH/MM3 Monocytes # (Auto) 0.7 TH/MM3 Eosinophils # (Auto) 0.4 TH/MM3 Basophils # (Auto) 0.0 TH/MM3 CBC Comment DIFF FINAL Differential Comment Sodium Level 138 MEQ/L Potassium Level 2.9 MEQ/L Chloride Level 106 MEQ/L Carbon Dioxide Level 24.4 MEQ/L Anion Gap 8 MEQ/L Blood Urea Nitrogen 13 MG/DL Creatinine 0.75 MG/DL Estimat Glomerular Filtration 82 ML/MIN Rate Random Glucose 103 MG/DL Calcium Level 8.4 MG/DL Total Bilirubin 0.4 MG/DL Aspartate Amino Transf 22 U/L (AST/SGOT) Alanine Aminotransferase 36 U/L (ALT/SGPT) Alkaline Phosphatase 114 U/L Total Protein 7.8 GM/DL Albumin 3.5 GM/DL Lipase 212 U/L [facility] Medical Decision Making Medical Screen Exam Complete: Yes Emergency Medical Condition: Yes Medical Record Reviewed: Yes Differential Diagnosis Gastritis, pancreatitis, appendicitis, acute cholecystitis, ascending cholangitis, AAA, perforated viscous, mesenteric ischemia, hepatitis, cystitis, hydronephrosis/hydroureter/nephroureter calculus, mesenteric adenitis, biliary colic Narrative Course CBC & BMP Diagram 02/10/17 23:20 LFTs are normal Lipase normal CT scan is pending at time of dictation. Oncoming provider to follow-up CT scan results reexamined the patient and disposition appropriately. Nicolas Robertson MD Feb 11, 2017 00:44
[2017-02-11] MEDS ORDERED: POTASSIUM CHLOR 20 MEQ PREMIX 100 ML IV ONE (01:00)
--- NOTE | 2017-02-11 01:04 | PD ---
Physical Exam Time Seen by Provider: 01:00 Data Data Last Documented VS Vital Signs Date Time Temp Pulse Resp B/P Pulse Ox O2 Delivery O2 Flow Rate FiO2 02/10/17 22:55 71 14 140/81 99 Room Air 02/10/17 19:09 97.5 Orders Complete Blood Count With Diff (02/10/17 23:00) Comprehensive Metabolic Panel (02/10/17 23:00) Lipase (02/10/17 23:00) Iv Access Insert/Monitor (02/10/17 23:00) Ecg Monitoring (02/10/17 23:00) Oximetry (02/10/17 23:00) Ondansetron Inj (Zofran Inj) (02/10/17 23:00) Sodium Chlor 0.9% 1000 Ml Inj (Ns 1000 M (02/10/17 23:00) Sodium Chloride 0.9% Flush (Ns Flush) (02/10/17 23:00) Morphine Inj (Morphine Inj) (02/10/17 23:00) Ct Abd/Pel W Iv Contrast(Rout) (02/11/17 ) Urinalysis - C+S If Indicated (02/11/17 00:54) Potassium Chlor 20 Meq Premix (Kcl 20 Me (02/11/17 01:00) Iohexol 350 Inj (Omnipaque 350 Inj) (02/11/17 01:22) Ampicillin-Sulbactam Inj (Unasyn Inj) (02/11/17 02:00) Morphine Inj (Morphine Inj) (02/11/17 02:30) Labs Laboratory Tests Test 02/10/17 02/11/17 23:20 01:15 White Blood Count 8.4 TH/MM3 Red Blood Count 4.00 MIL/MM3 Hemoglobin 11.2 GM/DL Hematocrit 32.2 % Mean Corpuscular Volume 80.4 FL Mean Corpuscular Hemoglobin 28.1 PG Mean Corpuscular Hemoglobin 34.9 % Concent Red Cell Distribution Width 13.0 % Platelet Count 286 TH/MM3 Mean Platelet Volume 8.4 FL Neutrophils (%) (Auto) 51.0 % Lymphocytes (%) (Auto) 35.8 % Monocytes (%) (Auto) 8.5 % Eosinophils (%) (Auto) 4.2 % Basophils (%) (Auto) 0.5 % Neutrophils # (Auto) 4.3 TH/MM3 Lymphocytes # (Auto) 3.0 TH/MM3 Monocytes # (Auto) 0.7 TH/MM3 Eosinophils # (Auto) 0.4 TH/MM3 Basophils # (Auto) 0.0 TH/MM3 CBC Comment DIFF FINAL Differential Comment Sodium Level 138 MEQ/L Potassium Level 2.9 MEQ/L Chloride Level 106 MEQ/L Carbon Dioxide Level 24.4 MEQ/L Anion Gap 8 MEQ/L Blood Urea Nitrogen 13 MG/DL Creatinine 0.75 MG/DL Estimat Glomerular Filtration 82 ML/MIN Rate Random Glucose 103 MG/DL Calcium Level 8.4 MG/DL Total Bilirubin 0.4 MG/DL Aspartate Amino Transf 22 U/L (AST/SGOT) Alanine Aminotransferase 36 U/L (ALT/SGPT) Alkaline Phosphatase 114 U/L Total Protein 7.8 GM/DL Albumin 3.5 GM/DL Lipase 212 U/L Urine Color LIGHT-YELLOW Urine Turbidity HAZY Urine pH 6.0 Urine Specific [place] 1.009 Urine Protein NEG mg/dL Urine Glucose (UA) NEG mg/dL Urine Ketones NEG mg/dL Urine Occult Blood NEG Urine Nitrite NEG Urine Bilirubin NEG Urine Urobilinogen LESS THAN 2.0 MG/DL Urine Leukocyte Esterase TRACE Urine WBC 3 /hpf Urine Squamous Epithelial 4 /hpf Cells Urine Bacteria RARE /hpf Urine Mucus FEW /lpf Microscopic Urinalysis Comment CULT NOT INDICATED MDM Medical Record Reviewed: Yes Supervised Visit with SONJA: No Narrative Course I assumed Care of this patient pending CT and urinalysis. Briefly this is a 52- year-old female who presents with right lower quadrant abdominal pain which started yesterday. The pain is an aching pain which is intermittent. She reports some nausea. She denies vomiting, diarrhea or constipation, flank pain , back pain, vaginal bleeding or discharge, hematuria, dysuria. The patient's lab work reveals hypokalemia, Dr. Robertson has ordered her IV potassium supplementation. CT of the abdomen reveals an elongated appendix which extends into the adnexa on the right side with a slightly increased diameter. I discussed the patient's clinical history and CT imaging results with surgeon protection manager Dr. Elias. He would like the patient to be admitted to the hospitalist service with consultation to himself. He recommends against IV antibiotics at this time. I've discussed with Dr. Tsai who is agreeable with admission. Diagnosis Primary Impression: Abdominal pain Qualified Code: R10.31 - Right lower quadrant abdominal pain Additional Impression: Hypokalemia Admitting Information Admitting Physician Requests: Observation Alonso Means Feb 11, 2017 01:04
[2017-02-11] MEDS ORDERED: IOHEXOL 350 MG/ML 10 ML VIAL (for RAD DIAG) IV ONE (01:22)
--- NOTE | 2017-02-11 01:47 | RADRPT ---
EXAM DATE/TIME: 02/11/2017 01:15 [place] COMPARISON: CT ABDOMEN & PELVIS W/O CONTRAST, February 13, 2016, 12:48. CT ABDOMEN & PELVIS W/O CONTRAST, September, 1:44. INDICATIONS : Right lower quadrant pain. IV CONTRAST: 75 cc Omnipaque 350 (iohexol) IV ORAL CONTRAST: No oral contrast ingested. RADIATION DOSE: 10.49 CTDIvol (mGy) MEDICAL HISTORY : Hypertension. Pancreatitis. Renal calculi. SURGICAL HISTORY : section. Tubal ligation.Cholecystectomy. ENCOUNTER: Initial ACUITY: 1 day PAIN SCALE: 5/10 LOCATION: Right lower quadrant TECHNIQUE: Volumetric scanning of the abdomen and pelvis was performed. Using automated exposure control and ad justment of the mA and/or kV according to patient size, radiation dose was kept as low as reasonably achievable to obtain optimal diagnostic quality images. DICOM format image data is available electro nically for review and comparison. FINDINGS: LOWER LUNGS: There is a 5 mm noncalcified nodule at the periphery of the lower lateral right lung (image #1). LIVER: Homogeneous density without lesion. There is no dilation of the biliary tree. Cholecystectomy. SPLEEN: Normal size without lesion. PANCREAS: Within normal limits. KIDNEYS: Normal in size and shape. There is no mass, stone or hydronephrosis. ADRENAL GLANDS: Within normal limits. VASCULAR: There is no aortic aneurysm. BOWEL/MESENTERY: No dilated loops of small or large bowel. The appendix is identified in the right lower quadrant, jesse men contains gas, measures up to 7 mm and extends into the right pelvis near the right adnexa. No in duration of the fat about the appendix and no free fluid. ABDOMINAL WALL: Within normal limits. RETROPERITONEUM: There is no lymphadenopathy. BLADDER: No wall thickening or mass. REPRODUCTIVE: Anteverted uterus. 2.8 cm oval smooth margin low density lesion in the lower uterine segment/cervix. Mean CT density is -15 Hounsfield units suggesting that this may be a fatty lesion. Probable right adnexal cyst measuring 1.5 cm. INGUINAL: There is no lymphadenopathy or hernia. MUSCULOSKELETAL: Within normal limits for patient age. CONCLUSION: 1. The appendix is elongated and extends into the adnexa on the right side and diameter is slightly i ncreased at 7 mm. No periappendiceal fat induration. 2. 2.8 cm low density lesion in the lower uterine segment/cervix region, possibly containing fat. 3. 5 mm nodule lower lateral right lung incidentally noted. In accordance Fleischner Society guideli yue, recommend followup examination in 12 months. Carlos Mcguire MD on February 11, 2017 at 1:33 Board Certified Radiologist. This report was verified electronically.
[2017-02-11] MEDS ORDERED: AMPICILLIN-SULBACTAM INJ 3 GM in SODIUM CHLORIDE 0.9% INJ 100 ML IV ONE (02:00)
[2017-02-11 02:23] LABS: BACTERIA, URINE RARE /hpf; BLOOD, URINE NEG (NEG); GLUCOSE,URINE NEG (NEG); KETONE, URINE NEG (NEG); MUCUS URINE FEW /lpf (OCC); NITRITE,URINE NEG (NEG); SQUAMOUS EPITHELIAL CELL URINE 4 /hpf (0-5); URINE COLOR LIGHT-YELLOW (YELLW/STRAW)
[2017-02-11 02:24] LABS: COMMENT (UR) CULT NOT INDICATED; CULTURE IF INDICATED CULT NOT INDICATED
[2017-02-11] MEDS ORDERED: MORPHINE SULFATE 4 MG/ML INJ IV PUSH ONE (02:30)
[2017-02-11] MEDS ORDERED: NALOXONE HCL 0.4 MG/ML AMP IV PRN (03:00)
[2017-02-11] MEDS ORDERED: SODIUM CHLORIDE 0.9% FLUSH 10 ML FLUSH IV FLUSH PRN (03:00)
[2017-02-11 04:13] VITALS: BP 108/64; PULSE 77; RESP 15; O2SAT 98
[2017-02-11] MEDS ORDERED: ONDANSETRON HCL 4 MG/2 ML VIAL IV PUSH ONE (04:30)
[2017-02-11] MEDS: MORPHINE SULFATE 4 MG/ML INJ IV PUSH PRN ×3 (07:19→21:08)
[2017-02-11 07:21] VITALS: BP 117/66; PULSE 73; RESP 20; TEMP 97.6; O2SAT 99
[2017-02-11 08:08] VITALS: BP 103/64; PULSE 68; RESP 18; TEMP 97.6; O2SAT 98
[2017-02-11] MEDS ORDERED: SODIUM CHLOR 0.9% 1000 ML INJ 1,000 ML IV SCH (09:15)
--- NOTE | 2017-02-11 09:15 | HHI.HP ---
HPI Service [facility] Primary Care Physician Aretha Rausch MD Admission Diagnosis abdominal pain, hypokalemia Diagnoses: Chief Complaint: abdominal pain, vomiting Travel History International Travel<30 Days: No Contact w/Intl Traveler <30 Da: No Traveled to Known Affected Are: No History of Present Illness Written by Gretel Wilder, acting as scribe for Dr. Hager on 02/11/17 at 09:12. This note was transcribed by scribe KELLI Darling. I, Dr. Ashutosh Hager personally performed the history, physical exam, and medical decision making; and confirmed the accuracy of the information in the transcribed note. Authenticated by Dr. Ashutosh Hager on 02/11/17 at 19:30. 52-year-old female with history of hyperlipidemia, hypothyroidism, and nephrolithiasis s/p lithotripsy, presents with a 1 week history of abdominal pain. The patient's daughter is at bedside who assists with translation per patient request. The patient reports abdominal pain located at RLQ without radiation, described as intermittently dull initially over the past week and then became constant sharp over the past 1-2 days. She reports associated persistent nausea and vomited once prior to coming to the hospital. She called her doctor who advised her to come to the ER. She denies any recent fevers/ chills. Denies diarrhea or constipation. Denies any dysuria, hematuria, or flank pain. Denies any other medical complaints at this time. Review of Systems Except as stated in HPI: all other systems reviewed are Neg Past Family Social History Past Medical History Hyperlipidemia Hypothyroidism Nephrolithiasis s/p lithotripsy Past Surgical History x4 Laparoscopic cholecystectomy Reported Medications Fluticasone Nasal [place] 50 Mcg/Act Naspr 50 Mcg EACH NARE BID 50 mcg/spray Fexofenadine (Fexofenadine HCl) 180 Mg Tab 180 Mg PO DAILY PRN Zocor (Simvastatin) 20 Mg Tab 20 Mg PO DAILY Levothyroxine (Levothyroxine Sodium) 75 Mcg Tab 75 Mcg PO DAILY Allergies: Coded Allergies: No Known Allergies (Verified , 02/06/17) Active Ordered Medications Current Medications Medications (Trade) Dose Ordered Sig/[place] Route Start Time Stop Time Status Last Admin (NS Flush) 2 ml UNSCH PRN IV FLUSH 02/11/17 03:00 (NS Flush) 2 ml BID IV FLUSH 02/11/17 09:00 (Narcan Inj) 0.4 mg UNSCH PRN IV 02/11/17 03:00 Morphine Sulfate 2 mg 2 mg Q3H PRN IV PUSH 02/11/17 03:00 02/11/17 07:19 (NS 1000 ml Inj) 1,000 ml @ 100 mls/hr Q10H IV 02/11/17 09:15 Family History Sister with throat cancer Social History Denies any tobacco, alcohol, or illicit drug use. Physical Exam Vital Signs Vital Signs Date Time Temp Pulse Resp B/P Pulse Ox O2 Delivery O2 Flow Rate FiO2 02/11/17 08:08 97.6 68 18 103/64 98 02/11/17 07:21 97.6 73 20 117/66 99 Room Air 02/11/17 04:13 77 15 108/64 98 Room Air 02/10/17 22:55 71 14 140/81 99 Room Air 02/10/17 19:09 97.5 82 16 153/73 99 Physical Exam GENERAL: Well-nourished, well-developed pleasant Stateless-speaking female patient in [facility]. SKIN: Warm and dry. No rash. HEENT: Normocephalic. Atraumatic.Pupils equal and round. Mucous membranes pink and moist. NECK: Supple. Trachea midline. CARDIOVASCULAR: Regular rate and rhythm. S1, S2 noted. No murmur appreciated. RESPIRATORY: No accessory muscle use. Clear to auscultation. Breath sounds equal bilaterally. GASTROINTESTINAL: Abdomen soft, nondistended, moderate tenderness to palpation at RLQ. Normoactive bowel sounds x4. MUSCULOSKELETAL: No obvious deformities. Extremities without clubbing, cyanosis , or edema. NEUROLOGICAL: Awake and alert. No obvious cranial nerve deficits. Motor grossly within normal limits. Normal speech. PSYCHIATRIC: Appropriate mood and affect; insight and judgment normal. Laboratory Laboratory Tests Test 02/10/17 02/11/17 23:20 01:15 White Blood Count 8.4 Red Blood Count 4.00 Hemoglobin 11.2 Hematocrit 32.2 Mean Corpuscular Volume 80.4 Mean Corpuscular Hemoglobin 28.1 Mean Corpuscular Hemoglobin 34.9 Concent Red Cell Distribution Width 13.0 Platelet Count 286 Mean Platelet Volume 8.4 Neutrophils (%) (Auto) 51.0 Lymphocytes (%) (Auto) 35.8 Monocytes (%) (Auto) 8.5 Eosinophils (%) (Auto) 4.2 Basophils (%) (Auto) 0.5 Neutrophils # (Auto) 4.3 Lymphocytes # (Auto) 3.0 Monocytes # (Auto) 0.7 Eosinophils # (Auto) 0.4 Basophils # (Auto) 0.0 CBC Comment DIFF FINAL Differential Comment Sodium Level 138 Potassium Level 2.9 Chloride Level 106 Carbon Dioxide Level 24.4 Anion Gap 8 Blood Urea Nitrogen 13 Creatinine 0.75 Estimat Glomerular Filtration 82 Rate Random Glucose 103 Calcium Level 8.4 Total Bilirubin 0.4 Aspartate Amino Transf 22 (AST/SGOT) Alanine Aminotransferase 36 (ALT/SGPT) Alkaline Phosphatase 114 Total Protein 7.8 Albumin 3.5 Lipase 212 Urine Color LIGHT-YELLOW Urine Turbidity HAZY Urine pH 6.0 Urine Specific [place] 1.009 Urine Protein NEG Urine Glucose (UA) NEG Urine Ketones NEG Urine Occult Blood NEG Urine Nitrite NEG Urine Bilirubin NEG Urine Urobilinogen LESS THAN 2.0 Urine Leukocyte Esterase TRACE Urine WBC 3 Urine Squamous Epithelial 4 Cells Urine Bacteria RARE Urine Mucus FEW Microscopic Urinalysis Comment CULT NOT INDICATED Result Diagram: 02/10/17 2320 02/10/17 2320 Imaging Last Impressions Abdomen/Pelvis CT 02/11/17 0000 Signed Impressions: Service Date/Time: Saturday, February 11, 2017 01:15 - CONCLUSION: 1. The appendix is elongated and extends into the adnexa on the right side and diameter is slightly increased at 7 mm. No periappendiceal fat induration. 2. 2.8 cm low density lesion in the lower uterine segment/cervix region, possibly containing fat. 3. 5 mm nodule lower lateral right lung incidentally noted. In accordance Fleischner Society guidelines, recommend followup examination in 12 months. Carlos Mcguire MD Assessment and Plan Problem List: (1) Abdominal pain ICD Code: R10.9 Status: Acute (2) Hypokalemia ICD Code: E87.6 Status: Acute Assessment and Plan 52-year-old female with history of hyperlipidemia, hypothyroidism, and nephrolithiasis s/p lithotripsy, presents with a 1 week history of abdominal pain. RLQ Abdominal Pain/Nausea/Vomiting: Unclear etiology. Lipase and LFTs wnl. Afebrile, no leukocytosis. CT abd/pelvis images reviewed, shows elongated appendix that extends into the right adnexa, diameter slightly increased at 7mm. UA unremarkable. -General surgery consulted, no surgical intervention -advance diet to clear liquid -supportive treatment with IVF, antiemetics, and pain control prn -monitor for improvement Hypokalemia: suspect secondary to vomiting and poor oral intake -replaced with IV KCl -repeat labs Hypothyroidism: chronic, stable, continue home levothyroxine Hyperlipidemia: chronic, stable, continue home statin DVT Prophylaxis: teds/SCDs Discussed Condition With Patient, patient's daughter and spouse, RN Problem Qualifiers (1) Abdominal pain: Qualified Code: R10.31 - Right lower quadrant abdominal pain Gretel Wilder PA-C Feb 11, 2017 09:15 Vandana Hager DO Feb 11, 2017 19:31
--- NOTE | 2017-02-11 09:20 | PD.CONS ---
HPI Service General Surgery Consult Requested By Reason for Consult Possible appendicitis Primary Care Physician Aretha Rausch MD History of Present Illness 52 yo F with two days of right lower quadrant abdominal pain, nausea, and anorexia. No diarrhea or vomiting. She has a recent history of ESWL for kidney stones right side. However, this pain does feel different to her. PSH includes lap malini and c section. Her daughters are translating for her as her Guinean is limited. Review of Systems Constitutional: DENIES: Fever, Chills Eyes: DENIES: Eye inflammation, Eye pain Respiratory: DENIES: Cough, Shortness of breath Cardiovascular: DENIES: Chest pain, Palpitations Gastrointestinal: COMPLAINS OF: Abdominal pain, Nausea Integumentary: DENIES: Pruritus, Rash Neurologic: DENIES: Paresthesias, Seizures Past Family Social History Past Medical History Hyperlipidemia Hypothyroidism Nephrolithiasis s/p lithotripsy Past Surgical History Lap malini C sections Reported Medications Reported Meds & Active Scripts Active Percocet (Oxycodone-Acetaminophen) 5-325 mg Tab 1 Tab PO Q6H PRN Reported Fluticasone Nasal [place] 50 Mcg/Act Naspr 50 Mcg EACH NARE BID 50 mcg/spray Fexofenadine (Fexofenadine HCl) 180 Mg Tab 180 Mg PO DAILY PRN Zocor (Simvastatin) 20 Mg Tab 20 Mg PO DAILY Levothyroxine (Levothyroxine Sodium) 75 Mcg Tab 75 Mcg PO DAILY Allergies: Coded Allergies: No Known Allergies (Verified , 02/06/17) Active Ordered Medications Current Medications Medications (Trade) Dose Ordered Sig/Eden Route Start Time Stop Time Status Last Admin (NS Flush) 2 ml UNSCH PRN IV FLUSH 02/11/17 03:00 (NS Flush) 2 ml BID IV FLUSH 02/11/17 09:00 (Narcan Inj) 0.4 mg UNSCH PRN IV 02/11/17 03:00 Morphine Sulfate 2 mg 2 mg Q3H PRN IV PUSH 02/11/17 03:00 02/11/17 07:19 (NS 1000 ml Inj) 1,000 ml @ 100 mls/hr Q10H IV 02/11/17 09:15 Family History Noncontributory Social History No ETOH, tobacco, or drug use. Physical Exam Vital Signs Vital Signs Date Time Temp Pulse Resp B/P Pulse Ox O2 Delivery O2 Flow Rate FiO2 02/11/17 08:08 97.6 68 18 103/64 98 02/11/17 07:21 97.6 73 20 117/66 99 Room Air 02/11/17 04:13 77 15 108/64 98 Room Air 02/10/17 22:55 71 14 140/81 99 Room Air 02/10/17 19:09 97.5 82 16 153/73 99 Physical Exam GENERAL: Awake and alert. No acute distress. Cooperative. HEAD: Normocephalic. Atraumatic. EYES: Pupils equal round and reactive to light bilaterally. No scleral icterus. ENT: Moist oral mucosa. NECK: Trachea midline. CHEST: Lungs clear to auscultation bilaterally with no wheezing or rhonchi. No respiratory distress. CARDIOVASCULAR: Regular rate and rhythm. ABDOMEN: Overweight. Moderate tenderness to palpation in the right lower quadrant. No rebound or guarding. Soft. EXTREMITIES: No cyanosis or edema. SKIN: Warm, dry, nonjaundiced. Laboratory Laboratory Tests Test 02/10/17 02/11/17 23:20 01:15 White Blood Count 8.4 Red Blood Count 4.00 Hemoglobin 11.2 Hematocrit 32.2 Mean Corpuscular Volume 80.4 Mean Corpuscular Hemoglobin 28.1 Mean Corpuscular Hemoglobin 34.9 Concent Red Cell Distribution Width 13.0 Platelet Count 286 Mean Platelet Volume 8.4 Neutrophils (%) (Auto) 51.0 Lymphocytes (%) (Auto) 35.8 Monocytes (%) (Auto) 8.5 Eosinophils (%) (Auto) 4.2 Basophils (%) (Auto) 0.5 Neutrophils # (Auto) 4.3 Lymphocytes # (Auto) 3.0 Monocytes # (Auto) 0.7 Eosinophils # (Auto) 0.4 Basophils # (Auto) 0.0 CBC Comment DIFF FINAL Differential Comment Sodium Level 138 Potassium Level 2.9 Chloride Level 106 Carbon Dioxide Level 24.4 Anion Gap 8 Blood Urea Nitrogen 13 Creatinine 0.75 Estimat Glomerular Filtration 82 Rate Random Glucose 103 Calcium Level 8.4 Total Bilirubin 0.4 Aspartate Amino Transf 22 (AST/SGOT) Alanine Aminotransferase 36 (ALT/SGPT) Alkaline Phosphatase 114 Total Protein 7.8 Albumin 3.5 Lipase 212 Urine Color LIGHT-YELLOW Urine Turbidity HAZY Urine pH 6.0 Urine Specific [place] 1.009 Urine Protein NEG Urine Glucose (UA) NEG Urine Ketones NEG Urine Occult Blood NEG Urine Nitrite NEG Urine Bilirubin NEG Urine Urobilinogen LESS THAN 2.0 Urine Leukocyte Esterase TRACE Urine WBC 3 Urine Squamous Epithelial 4 Cells Urine Bacteria RARE Urine Mucus FEW Microscopic Urinalysis Comment CULT NOT INDICATED Result Diagram: 02/10/17 2320 02/10/17 2320 Imaging Last Impressions Abdomen/Pelvis CT 02/11/17 0000 Signed Impressions: Service Date/Time: Saturday, February 11, 2017 01:15 - CONCLUSION: 1. The appendix is elongated and extends into the adnexa on the right side and diameter is slightly increased at 7 mm. No periappendiceal fat induration. 2. 2.8 cm low density lesion in the lower uterine segment/cervix region, possibly containing fat. 3. 5 mm nodule lower lateral right lung incidentally noted. In accordance Fleischner Society guidelines, recommend followup examination in 12 months. Carlos Mcguire MD Assessment and Plan Assessment and Plan 52 yo F RLQ pain, possible acute appendicitis. Recent history of nephrolithiasis requiring ESWL mid December. The size of her appendix is borderline on CT scan for appendicitis and there is not periappendiceal inflammation. I discussed the case with Dr. Soto of radiology. I discussed the case in detail with the patient and her family and described options of immediate operative intervention versus observation and reexamination tomorrow. Will plan to recheck labs and exam in am. Boy Elias MD Feb 11, 2017 09:20
[2017-02-11] MEDS: SODIUM CHLORIDE 0.9% FLUSH 10 ML FLUSH IV FLUSH SCH ×2 (09:31→21:00)
[2017-02-11] MEDS ORDERED: ONDANSETRON HCL 4 MG/2 ML VIAL IV PUSH PRN (11:30)
[2017-02-11 12:30] VITALS: BP 114/67; PULSE 63; RESP 18; TEMP 98.1; O2SAT 96
[2017-02-11 16:32] LABS: ALT (GPT) 43 U/L (10-53); ANION GAP 8 MEQ/L (5-15); AST (GOT) 30 U/L (15-37); BICARBONATE 23.6 MEQ/L (21.0-32.0); BLOOD UREA NITROGEN 8 MG/DL (7-18); CHLORIDE 109 MEQ/L (98-107); GLOMERULAR FILTRATION RATE 84 ML/MIN (>89); POTASSIUM 3.2 MEQ/L (3.5-5.1); SODIUM (NA) 141 MEQ/L (136-145)
[2017-02-11 16:40] LABS: ALKALINE PHOSPHATASE 98 U/L (45-117); TOTAL BILIRUBIN ADULT 0.5 MG/DL (0.2-1.0)
[2017-02-11 17:54] VITALS: BP 114/64; PULSE 66; RESP 18; TEMP 97.6; O2SAT 96
[2017-02-11] MEDS: NS + KCL 20 MEQ INJ 1,000 ML IV SCH (18:31)
[2017-02-11] MEDS: FLUTICASONE PROPIONATE 50 MCG/ACT 16 GM NASAL SPRAY EACH NARE SCH (22:23)
[2017-02-12 01:51] VITALS: BP 107/55; PULSE 66; RESP 18; TEMP 97.9; O2SAT 98
[2017-02-12 04:09] VITALS: BP 100/58; PULSE 64; RESP 18; TEMP 97.8; O2SAT 96
[2017-02-12] MEDS: NS + KCL 20 MEQ INJ 1,000 ML IV SCH ×3 (04:15→23:18)
[2017-02-12] MEDS: LEVOTHYROXINE SODIUM 75 MCG TAB PO SCH (06:43)
[2017-02-12 07:07] LABS: AUTOMATED NEUTROPHIL # 3.7 TH/MM3 (1.8-7.7); BASOPHIL % 0.3 % (0.0-2.0); EOSINOPHIL # 0.4 TH/MM3 (0-0.4); EOSINOPHIL % 5.6 % (0.0-4.0); HEMATOCRIT 31.9 % (35.0-46.0); HEMO FLAGS DIFF FINAL; LYMPH % 31.2 % (9.0-44.0); LYMPHOCYTE # 2.1 TH/MM3 (1.0-4.8); MEAN CELL VOLUME 82.4 FL (80.0-100.0); MONO % 8.4 % (0.0-8.0); NEUT % 54.5 % (16.0-70.0); PLATELET COUNT 241 TH/MM3 (150-450); RED BLOOD COUNT 3.88 MIL/MM3 (4.00-5.30); RED CELL DISTRIBUTION WIDTH 13.3 % (11.6-17.2); WHITE BLOOD COUNT 6.8 TH/MM3 (4.0-11.0)
[2017-02-12 07:16] LABS: BICARBONATE 25.1 MEQ/L (21.0-32.0); POTASSIUM 3.7 MEQ/L (3.5-5.1)
[2017-02-12 08:00] VITALS: BP 114/66; PULSE 65; RESP 20; TEMP 95.3; O2SAT 96
--- NOTE | 2017-02-12 08:25 | HHI.PR ---
Subjective Subjective Notes She complains of worse pain today. She vomited multiple times yesterday. Objective Vitals/I&O Vital Signs Date Time Temp Pulse Resp B/P Pulse Ox O2 Delivery O2 Flow Rate FiO2 02/12/17 04:09 97.8 64 18 100/58 96 02/11/17 07:21 Room Air Labs Laboratory Tests Test 02/11/17 02/12/17 15:00 06:36 Sodium Level 141 140 Potassium Level 3.2 3.7 Chloride Level 109 110 Carbon Dioxide Level 23.6 25.1 Anion Gap 8 5 Blood Urea Nitrogen 8 6 Creatinine 0.73 0.66 Estimat Glomerular Filtration 84 95 Rate Random Glucose 116 100 Calcium Level 8.1 7.8 Magnesium Level 2.0 Total Bilirubin 0.5 Aspartate Amino Transf 30 (AST/SGOT) Alanine Aminotransferase 43 (ALT/SGPT) Alkaline Phosphatase 98 Total Protein 7.3 Albumin 3.1 White Blood Count 6.8 Red Blood Count 3.88 Hemoglobin 10.9 Hematocrit 31.9 Mean Corpuscular Volume 82.4 Mean Corpuscular Hemoglobin 28.0 Mean Corpuscular Hemoglobin 34.0 Concent Red Cell Distribution Width 13.3 Platelet Count 241 Mean Platelet Volume 7.7 Neutrophils (%) (Auto) 54.5 Lymphocytes (%) (Auto) 31.2 Monocytes (%) (Auto) 8.4 Eosinophils (%) (Auto) 5.6 Basophils (%) (Auto) 0.3 Neutrophils # (Auto) 3.7 Lymphocytes # (Auto) 2.1 Monocytes # (Auto) 0.6 Eosinophils # (Auto) 0.4 Basophils # (Auto) 0.0 CBC Comment DIFF FINAL Differential Comment Narrative Exam NAD Mod ttp RLQ, otherwise soft ntd A/P Assessment and Plan 52 yo F with RLQ pain, concern for acute appendicitis. She has worsening pain and multiple episodes of emesis. She desires to proceed to the OR today for laparoscopic appendectomy. She knows there is a chance of normal appendix. Curt,Boy UY Feb 12, 2017 08:25
[2017-02-12] MEDS: FLUTICASONE PROPIONATE 50 MCG/ACT 16 GM NASAL SPRAY EACH NARE SCH ×3 (08:35→23:16)
[2017-02-12] MEDS: PRAVASTATIN SOD 40 MG TAB PO SCH (08:35)
[2017-02-12] MEDS: SODIUM CHLORIDE 0.9% FLUSH 10 ML FLUSH IV FLUSH SCH ×2 (08:37→22:26)
[2017-02-12] MEDS ORDERED: PIPERACIL-TAZO 3.375 GM PREMIX 50 ML IV SCH (09:00)
--- NOTE | 2017-02-12 09:14 | HHI.PR ---
Subjective Remarks Follow up for abdominal pain. Patient seen around 8am this morning. She reports continued RLQ abdominal pain overnight, no spring coiler hand at bedside therefore difficult for patient to verbalize further details. RN and patient reports multiple episodes of vomiting yesterday and overnight. Denies fevers/chills. No other medical complaints at this time. Objective Vitals Vital Signs Date Time Temp Pulse Resp B/P Pulse Ox O2 Delivery O2 Flow Rate FiO2 02/12/17 04:09 97.8 64 18 100/58 96 02/12/17 01:51 97.9 66 18 107/55 98 02/11/17 21:13 18 02/11/17 17:54 97.6 66 18 114/64 96 02/11/17 12:30 98.1 63 18 114/67 96 I/O 02/11/17 02/11/17 02/11/17 02/12/17 02/12/17 02/12/17 06:59 14:59 22:59 06:59 14:59 22:59 Intake Total 887 ml Balance 887 ml Intake IV Total 887 ml Result Diagram: 02/12/17 0636 02/12/17 0636 Imaging Last Impressions Abdomen/Pelvis CT 02/11/17 0000 Signed Impressions: Service Date/Time: Saturday, February 11, 2017 01:15 - CONCLUSION: 1. The appendix is elongated and extends into the adnexa on the right side and diameter is slightly increased at 7 mm. No periappendiceal fat induration. 2. 2.8 cm low density lesion in the lower uterine segment/cervix region, possibly containing fat. 3. 5 mm nodule lower lateral right lung incidentally noted. In accordance Fleischner Society guidelines, recommend followup examination in 12 months. Carlos Mcguire MD Objective Remarks GENERAL: Well-nourished, well-developed pleasant [place]ian-speaking female patient in [facility]. SKIN: Warm and dry. No rash. HEENT: Normocephalic. Atraumatic.Pupils equal and round. Mucous membranes pink and moist. CARDIOVASCULAR: Regular rate and rhythm. S1, S2 noted. No murmur appreciated. RESPIRATORY: No accessory muscle use. Clear to auscultation. Breath sounds equal bilaterally. GASTROINTESTINAL: Abdomen soft, nondistended, moderate tenderness to palpation at RLQ. Normoactive bowel sounds x4. MUSCULOSKELETAL: No obvious deformities. Extremities without clubbing, cyanosis , or edema. NEUROLOGICAL: Awake and alert. No obvious cranial nerve deficits. Motor grossly within normal limits. Normal speech. PSYCHIATRIC: Appropriate mood and affect; insight and judgment normal. Medications and IVs Current Medications Medications (Trade) Dose Ordered Sig/Eden Route Start Time Stop Time Status Last Admin (NS Flush) 2 ml UNSCH PRN IV FLUSH 02/11/17 03:00 (NS Flush) 2 ml BID IV FLUSH 02/11/17 09:00 02/12/17 08:37 (Narcan Inj) 0.4 mg UNSCH PRN IV 02/11/17 03:00 (Morphine Inj) 2 mg Q3H PRN IV PUSH 02/11/17 03:00 02/11/17 21:08 (Flonase Rudy Spr) 1 spray BID EACH NARE 02/11/17 21:00 02/12/17 08:35 (Synthroid) 75 mcg DAILY@06 PO 02/12/17 06:00 02/12/17 06:43 (Pravachol) 40 mg DAILY PO 02/12/17 09:00 02/12/17 08:35 Ondansetron HCl 4 mg 4 mg Q6HR PRN IV PUSH 02/11/17 11:30 02/11/17 12:53 Potassium Chloride/Sodium Chloride 1,000 ml @ 100 mls/hr Q10H IV 02/11/17 18:15 02/11/17 18:31 (Zosyn 3.375 Gm Premix) 50 ml @ 100 mls/hr Q6H IV 02/12/17 09:00 A/P Problem List: (1) Abdominal pain ICD Code: R10.9 Status: Acute (2) Hypokalemia ICD Code: E87.6 Status: Acute Assessment and Plan 52-year-old female with history of hyperlipidemia, hypothyroidism, and nephrolithiasis s/p lithotripsy, presents with a 1 week history of abdominal pain. Suspected Appendicitis: with RLQ Abdominal Pain/Nausea/Vomiting. Lipase and LFTs wnl. Afebrile, no leukocytosis. CT abd/pelvis images reviewed, shows elongated appendix that extends into the right adnexa, diameter slightly increased at 7mm. UA unremarkable. -General surgery consulted, proceeding with laparoscopic appendectomy today 8 /17 -Started on IV Zosyn -NPO for now -supportive treatment with IVF NS w/KCl, antiemetics, and pain control prn -monitor for improvement Hypokalemia: suspect secondary to vomiting and poor oral intake -replaced with IV KCl -repeat labs show improvement, K 3.7 Hypothyroidism: chronic, stable, continue home levothyroxine Hyperlipidemia: chronic, stable, continue home statin DVT Prophylaxis: teds/SCDs Discharge Planning Going to OR today. Discharge when tolerating oral intake and cleared by surgery. Possible discharge tomorrow. Problem Qualifiers (1) Abdominal pain: Qualified Code: R10.31 - Right lower quadrant abdominal pain Gretel Wilder PA-C Feb 12, 2017 09:14
[2017-02-12] MEDS ORDERED: ACETAMINOPHEN 1000 MG/100 ML VIAL IV ONE (10:49)
[2017-02-12] MEDS ORDERED: MIDAZOLAM HCL 2 MG/2 ML VIAL ONE (10:49)
[2017-02-12] MEDS ORDERED: FAMOTIDINE 20 MG/2 ML VIAL ONE (10:49)
[2017-02-12] MEDS ORDERED: DEXAMETHASONE SOD PHOS 4 MG/ML VIAL ONE (10:49)
[2017-02-12] MEDS ORDERED: fentaNYL CITRATE 250 MCG/5 ML AMP ONE (10:52)
[2017-02-12] MEDS ORDERED: BUPIVACAINE/EPINEPHRINE 0.25% 50 ML VIAL INFIL ONE (11:36)
[2017-02-12] MEDS ORDERED: PROPOFOL 200 MG/20 ML AMP IV ONE (12:00)
[2017-02-12] MEDS ORDERED: LACTATED RINGER'S 1000 ML INJ 1,000 ML IV ONE (12:00)
[2017-02-12] MEDS ORDERED: PHENYLEPH/NS 1000 MCG/10 ML SYR IV ONE (12:00)
[2017-02-12] MEDS ORDERED: ONDANSETRON HCL 4 MG/2 ML VIAL IV PUSH ONE (12:00)
[2017-02-12] MEDS ORDERED: ePHEDrine/NS 25 MG/5 ML SYR IV ONE (12:00)
[2017-02-12] MEDS ORDERED: SUGAMMADEX SODIUM 200 MG/2 ML VIAL IV PUSH ONE ×2 (12:01)
--- NOTE | 2017-02-12 12:23 | PD.OP ---
cc: Boy Elias MD Operative Report Date of Surgery: Feb 12, 2017 Preoperative Diagnosis: (1) Acute appendicitis Postoperative Diagnosis: (1) Abdominal pain Procedure: Diagnostic laparoscopy, laparoscopic appendectomy Anesthesia: AMANDAA Surgeon: Boy Elias Safety Assistant(s): Francisca Hernandez CFA Operation and Findings: EBL: 5 cc Complications: None apparent Operative findings: The patient had adhesions in the lower midline secondary to previous . The appendix appeared normal. The right ovary was visualized with a small cyst present but no evidence of pathology. The sigmoid colon appeared normal. The small bowel was run for 3 feet and appeared normal. There was no inflammation noted in the abdomen. The stomach appeared normal. The appendix was removed. Procedure in detail: The patient was taken to the operating room placed in the supine position with left arm tucked. General endotracheal anesthesia was induced and the abdomen was prepped and draped in usual sterile fashion. Surgical timeout was performed to verify correct patient procedure and site. Perioperative antibiotics were administered as necessary. Local anesthetic was injected in the skin and subcutaneous tissue at the left lower abdomen and a 5 mm incision made. Using the 5 mm Optiview trocar with laparoscope the abdomen was directly entered. Was then insufflated to 15 mmHg with CO2 gas which the patient tolerated well. The patient was then placed in Trendelenburg position and turned slightly to the left. The patient had midline adhesions in the lower abdomen all the way from the pubis to the umbilicus. A 5 mm port was placed just above the umbilicus. The right lower quadrant was visualized. Another right lower quadrant was placed in the upper midline away from adhesions and a 12 mm port in the right mid abdomen. The patient was placed in Trendelenburg position. Attention was turned to the right lower quadrant. The upper rectum appeared normal. The uterus was visualized with small fibroids. The right ovary and fallopian tube were chronically adherent to the pelvic sidewall. There was no pathology noted in the ovary. The small bowel was run for approximately 3 feet with no inflammation and no Meckel's diverticulum identified. The appendix was present and may have been slightly dilated but appeared basically normal. I did decide to proceed with appendectomy as it was noted he out etiology of her pain. The mesoappendix was taken out with Harmonic scalpel. Two #1 PDS Endoloops were placed at the base the appendix and the appendix transected with Harmonic scalpel. It was then removed using an Endo Catch bag. The appendiceal stump was intact with no leakage. The sigmoid colon also was visualized and appeared to be normal. At this point I opted to terminate the procedure. Trochars were removed. The fascia at the 12 mm port site was closed with a single 0 Vicryl suture. Skin closed with subcuticular Monocryl as well as Dermabond. The patient tolerated the procedure well was extubated and taken to PACU in stable condition. Boy Elias MD Feb 12, 2017 12:23
[2017-02-12] MEDS ORDERED: oxyCODONE/ACETAMINOPHEN 5 MG/325 MG TAB PO PRN (12:30)
[2017-02-12] MEDS ORDERED: *RESP: ALBUTEROL 2.5 MG/3 ML NEB (PRN) PERIprocedural Use ONLY NEB ONE (12:42)
[2017-02-12] MEDS ORDERED: *MEPERIDINE 25 MG INJ VIAL PERIprocedural Use ONLY ONE (12:49)
[2017-02-12] MEDS ORDERED: *ONDANSETRON 4 MG VIAL PERIprocedural Use ONLY ONE (12:53)
[2017-02-12] MEDS ORDERED: *morphine SULFATE 8 MG/ML PERIprocedure ONLY ONE (13:27)
[2017-02-12] MEDS ORDERED: DO NOT ADM ANY ANTICOAGULANT DRUGS PRN (14:45)
[2017-02-12 16:00] VITALS: BP 105/58; PULSE 75; RESP 20; TEMP 97.9; O2SAT 97
[2017-02-12] MEDS: oxyCODONE/ACETAMINOPHEN 5 MG/325 MG TAB PO PRN (17:07)
[2017-02-12 20:00] VITALS: BP 119/64; PULSE 86; RESP 20; TEMP 96.8; O2SAT 96
[2017-02-13] VITALS: BP 92/48; PULSE 70; RESP 20; TEMP 97.5; O2SAT 100
[2017-02-13 04:00] VITALS: BP 105/55; PULSE 72; RESP 20; TEMP 97.1; O2SAT 97
[2017-02-13] MEDS: LEVOTHYROXINE SODIUM 75 MCG TAB PO SCH (05:33)
[2017-02-13] MEDS: oxyCODONE/ACETAMINOPHEN 5 MG/325 MG TAB PO PRN (05:36)
[2017-02-13 08:00] VITALS: BP 99/55; PULSE 63; RESP 20; TEMP 98; O2SAT 96
[2017-02-13] MEDS ORDERED: PERC5TAB12 PO (09:12)
--- NOTE | 2017-02-13 09:13 | HHI.DS ---
Discharge Summary Admission Date Feb 11, 2017 at 2:59 am Discharge Date: Feb 13, 2017 Admitting Diagnosis abdominal pain, hypokalemia (1) Abdominal pain ICD Code: R10.9 - Unspecified abdominal pain (2) Hypokalemia ICD Code: E87.6 - Hypokalemia Brief History - From Admission 52-year-old female with history of hyperlipidemia, hypothyroidism, and nephrolithiasis s/p lithotripsy, presents with a 1 week history of abdominal pain. The patient's daughter is at bedside who assists with translation per patient request. The patient reports abdominal pain located at RLQ without radiation, described as intermittently dull initially over the past week and then became constant sharp over the past 1-2 days. She reports associated persistent nausea and vomited once prior to coming to the hospital. She called her doctor who advised her to come to the ER. She denies any recent fevers/ chills. Denies diarrhea or constipation. Denies any dysuria, hematuria, or flank pain. Denies any other medical complaints at this time. CBC/BMP: 02/12/17 0636 02/12/17 0636 Significant Findings Laboratory Tests Test 02/10/17 02/11/17 02/11/17 02/12/17 23:20 01:15 15:00 06:36 Hemoglobin 11.2 GM/DL 10.9 GM/DL (11.6-15.3) (11.6-15.3) Hematocrit 32.2 % 31.9 % (35.0-46.0) (35.0-46.0) Monocytes (%) (Auto) 8.5 % (0.0-8.0) 8.4 % (0.0-8.0) Eosinophils (%) (Auto) 4.2 % (0.0-4.0) 5.6 % (0.0-4.0) Potassium Level 2.9 MEQ/L 3.2 MEQ/L (3.5-5.1) (3.5-5.1) Estimat Glomerular Filtration 82 ML/MIN (>89) 84 ML/MIN (>89) Rate Calcium Level 8.4 MG/DL 8.1 MG/DL 7.8 MG/DL (8.5-10.1) (8.5-10.1) (8.5-10.1) Urine Turbidity HAZY (CLEAR) Urine Leukocyte Esterase TRACE (NEG) Urine Bacteria RARE /hpf (NONE) Urine Mucus FEW /lpf (OCC) Chloride Level 109 MEQ/L 110 MEQ/L (98-107) (98-107) Random Glucose 116 MG/DL (74-106) Albumin 3.1 GM/DL (3.4-5.0) Red Blood Count 3.88 MIL/MM3 (4.00-5.30) Blood Urea Nitrogen 6 MG/DL (7-18) Imaging Last Impressions Abdomen/Pelvis CT 02/11/17 0000 Signed Impressions: Service Date/Time: Saturday, February 11, 2017 01:15 - CONCLUSION: 1. The appendix is elongated and extends into the adnexa on the right side and diameter is slightly increased at 7 mm. No periappendiceal fat induration. 2. 2.8 cm low density lesion in the lower uterine segment/cervix region, possibly containing fat. 3. 5 mm nodule lower lateral right lung incidentally noted. In accordance Fleischner Society guidelines, recommend followup examination in 12 months. Carlos Mcguire MD PE at Discharge GENERAL: Well-nourished, well-developed pleasant Amharic-speaking female patient in [facility]. SKIN: Warm and dry. No rash. HEENT: Normocephalic. Atraumatic.Pupils equal and round. Mucous membranes pink and moist. CARDIOVASCULAR: Regular rate and rhythm. S1, S2 noted. No murmur appreciated. RESPIRATORY: No accessory muscle use. Clear to auscultation. Breath sounds equal bilaterally. GASTROINTESTINAL: Abdomen soft, nondistended, moderate tenderness to palpation at RLQ. Normoactive bowel sounds x4. MUSCULOSKELETAL: No obvious deformities. Extremities without clubbing, cyanosis , or edema. NEUROLOGICAL: Awake and alert. No obvious cranial nerve deficits. Motor grossly within normal limits. Normal speech. PSYCHIATRIC: Appropriate mood and affect; insight and judgment normal. Pt update on day of discharge Patient is doing well. No abdominal pain. Had BM. Ambulating well. No fever, chills. Discussed with Dr. Elias (Gen Surg) who is okay with discharge. Hospital Course 52-year-old female with history of hyperlipidemia, hypothyroidism, and nephrolithiasis s/p lithotripsy, presents with a 1 week history of abdominal pain. Suspected Appendicitis: with RLQ Abdominal Pain/Nausea/Vomiting. Lipase and LFTs wnl. Afebrile, no leukocytosis. CT abd/pelvis images reviewed, shows elongated appendix that extends into the right adnexa, diameter slightly increased at 7mm. UA unremarkable. -General surgery consulted, s/p appendectomy. -post surgery, patient is doing well. - 2 week post discharge follow up with General surgery. Hypokalemia: suspect secondary to vomiting and poor oral intake -replaced with IV KCl -repeat labs show improvement, K 3.7 Hypothyroidism: chronic, stable, continue home levothyroxine Hyperlipidemia: chronic, stable, continue home statin Discharge Time: <= 30 minutes Discharge Instructions Follow up Referrals: PCP Follow-up - 1 Week New Orders: CT THORAX W/O CONTRAST (CHEST) - 1 Year New Medications: Oxycodone-Acetaminophen (Percocet) 5-325 mg Tab 1 TAB PO Q6H PRN for PAIN, #20 TAB 0 Refills Continued Medications: Fexofenadine (Fexofenadine) 180 Mg Tab 180 MG PO DAILY PRN for ALLERGIES, #30 TAB 0 Refills Fluticasone Nasal [place] (Fluticasone Nasal [place]) 50 Mcg/Act Naspr 50 MCG EACH NARE BID for Allergy Management, #1 BOTTLE 0 Refills 50 mcg/spray Levothyroxine (Levothyroxine) 75 Mcg Tab 75 MCG PO DAILY for Thyroid, #30 TAB 0 Refills Simvastatin (Zocor) 20 Mg Tab 20 MG PO DAILY for Cholesterol Management, #30 TAB 0 Refills Vandana Hager DO Feb 13, 2017 09:13
[2017-02-13] MEDS: PRAVASTATIN SOD 40 MG TAB PO SCH (10:36)
[2017-02-13] MEDS: SODIUM CHLORIDE 0.9% FLUSH 10 ML FLUSH IV FLUSH SCH (10:37)
[2017-02-13] MEDS: FLUTICASONE PROPIONATE 50 MCG/ACT 16 GM NASAL SPRAY EACH NARE SCH (10:37)
--- NOTE | 2017-02-13 11:43 | HHI.PR ---
Subjective Subjective Notes She feels much better. Mars diet and min pain. Objective Vitals/I&O Vital Signs Date Time Temp Pulse Resp B/P Pulse Ox O2 Delivery O2 Flow Rate FiO2 02/13/17 08:00 98.0 63 20 99/55 96 02/12/17 15:30 Nasal Cannula 2 Narrative Exam NAD mild post op ttp A/P Assessment and Plan 52 yo F POD 1 dx lap, lap appy. She feels much improved today. Appendix appeared somewhat normal but with this improvement I think it was likely appendicitis. I am ok with dc home. F/u in two weeks. Curt,Boy YU Feb 13, 2017 11:43
== END 2017-02-13 11:45 | disposition home or self-care (01) ==
LOC: NEPD 19:06 → NEDA 02-11 02:59 → NEPFCDU 02-11 07:53 → N07B 02-12 13:24 → N07A 02-12 15:57
PROVIDERS: ADMIT Hospitalist; ATTEND Hospitalist
PROC: 0DTJ4ZZ Resection of Appendix, Percutaneous Endoscopic Approach (ICD-10-PCS; principal; 2017-02-10)
DX: K35.80 Unspecified acute appendicitis (principal); E87.6 Hypokalemia; E78.5 Hyperlipidemia, unspecified; E03.9 Hypothyroidism, unspecified; F41.9 Anxiety disorder, unspecified; F32.9 Major depressive disorder, single episode, unspecified; Z79.899 Other long term (current) drug therapy; K66.0 Peritoneal adhesions (postprocedural) (postinfection)
CPT/HCPCS: 01922; 44970; 74177; 80048; 80053; 81001; 83690; 83735; 85025; 88304; 94664; 96361; 96365; 96366; 96375; 96376; 99285; G0378; J0131; J1100; J2175; J2250; J2270; J2370; J2405; J2543; J3010; J3480; J7030; J7120; J7613; Q9967

== ENCOUNTER 2017-07-15 17:44 | Inpatient (IN) | payer OTHER ==
[~2017-07-15] VITALS: Ht 157.5 cm; Wt 69.5 kg
[~2017-07-15 17:44] MED LIST changes: -HYDR-3534 PO
[2017-07-15 17:45] VITALS: BP 136/69; PULSE 116; RESP 22; TEMP 103.6; O2SAT 98
[2017-07-15] MEDS ORDERED: ACETAMINOPHEN 325 MG TAB PO ONE (18:15)
--- NOTE | 2017-07-15 18:36 | RADRPT ---
EXAM DATE/TIME: 07/15/2017 18:22 [place] COMPARISON: No previous studies available for comparison. INDICATIONS : Shortness of breath and fever. MEDICAL HISTORY : None. SURGICAL HISTORY : None. ENCOUNTER: Initial ACUITY: 2 days PAIN SCORE: 0/10 LOCATION: chest FINDINGS: PA and lateral views of the chest demonstrate the lungs to be symmetrically aerated without evidence of mass, infiltrate or effusion. The cardiomediastinal contours are unremarkable. Osseous structure s are intact. CONCLUSION: No acute disease. Carlos Guillory Jr., MD on July 15, 2017 at 18:33 Board Certified Radiologist. This report was verified electronically.
[2017-07-15 19:43] LABS: AUTOMATED NEUTROPHIL # 6.2 TH/MM3 (1.8-7.7); BASOPHIL % 0.5 % (0.0-2.0); EOSINOPHIL % 0.3 % (0.0-4.0); HEMATOCRIT 35.1 % (35.0-46.0); HEMOGLOBIN 11.8 GM/DL (11.6-15.3); LYMPH % 9.9 % (9.0-44.0); LYMPHOCYTE # 0.8 TH/MM3 (1.0-4.8); MEAN CELL VOLUME 81.3 FL (80.0-100.0); MEAN CORPUSCULAR HEMOGLOBIN 27.4 PG (27.0-34.0); MEAN CORPUSCULAR HGB CONC 33.6 % (32.0-36.0); MEAN PLATELET VOLUME 7.9 FL (7.0-11.0); MONO % 10.5 % (0.0-8.0); MONOCYTE # 0.8 TH/MM3 (0-0.9); NEUT % 78.8 % (16.0-70.0); PLATELET COUNT 228 TH/MM3 (150-450); RED BLOOD COUNT 4.32 MIL/MM3 (4.00-5.30); RED CELL DISTRIBUTION WIDTH 13.7 % (11.6-17.2); WHITE BLOOD COUNT 7.9 TH/MM3 (4.0-11.0)
[2017-07-15 19:57] LABS: ALBUMIN 3.9 GM/DL (3.4-5.0); ALT (GPT) 44 U/L (10-53); AST (GOT) 41 U/L (15-37); BICARBONATE 26.5 MEQ/L (21.0-32.0); BLOOD UREA NITROGEN 14 MG/DL (7-18); CALCIUM 8.3 MG/DL (8.5-10.1); CHLORIDE 102 MEQ/L (98-107); CREATININE 0.97 MG/DL (0.50-1.00); GLOMERULAR FILTRATION RATE 61 ML/MIN (>89); GLUCOSE,RANDOM 112 MG/DL (74-106); LIPASE 173 U/L (73-393); SODIUM (NA) 135 MEQ/L (136-145)
[2017-07-15 20:00] LABS: ALKALINE PHOSPHATASE 123 U/L (45-117); TOTAL BILIRUBIN ADULT 0.4 MG/DL (0.2-1.0); TOTAL PROTEIN 8.5 GM/DL (6.4-8.2)
[2017-07-15] MEDS ORDERED: SODIUM CHLOR 0.9% 1000 ML INJ 1,000 ML IV SCH (20:54)
[2017-07-15 21:00] VITALS: BP 100/56; PULSE 87; RESP 18; O2SAT 97
[2017-07-15] MEDS ORDERED: OSELTAMIVIR PHOSPHATE 75 MG CAP PO ONE (21:00)
[2017-07-15] MEDS ORDERED: ONDANSETRON HCL 4 MG/2 ML VIAL IVP ONE (21:00)
[2017-07-15] MEDS ORDERED: SODIUM CHLORIDE 0.9% FLUSH 10 ML FLUSH IV FLUSH PRN ×2 (21:00→23:00)
[2017-07-15] MEDS ORDERED: MORPHINE SULFATE 2 MG/ML INJ IV PUSH ONE (21:00)
[2017-07-15] MEDS ORDERED: SODIUM CHLOR 0.9% 1000 ML INJ 1,000 ML IV ONE ×2 (21:15→22:45)
[2017-07-15] MEDS ORDERED: KETOROLAC TROMETHAMINE 30 MG/ML (IVP) VIAL IV PUSH ONE (21:15)
--- NOTE | 2017-07-15 21:15 | PD ---
HPI Chief Complaint: Fever Time Seen by Provider: 20:50 Travel History International Travel<30 days: No Contact w/Intl Traveler<30days: No Traveled to known affect area: No History of Present Illness HPI 52-year-old female here for evaluation of fever, left flank pain and left lower abdominal pain, cough, congestion. The patient reports having left flank pain for several months now, worse today. Pain is described as sharp. She has felt nauseous but has not vomited. Cough is nonproductive. She is having generalized malaise. No urinary symptoms. History of appendectomy last year. PFSH Past Medical History Arthritis: No Asthma: No Autoimmune Disease: No Blood Disorders: No Anxiety: Yes Depression: Yes Heart Rhythm Problems: No Cancer: No Cardiovascular Problems: Yes (hyperlipidemia) High Cholesterol: No Chest Pain: No Congestive Heart Failure: No COPD: No Cerebrovascular Accident: No Diabetes: No Diminished Hearing: No Endocrine: No Gastrointestinal Disorders: Yes (PANCREATITIS) GERD: No Genitourinary: No Headaches: Yes Hepatitis: No Hiatal Hernia: No Hypertension: No Immune Disorder: No Kidney Stones: Yes Musculoskeletal: No Neurologic: No Psychiatric: No Reproductive: No Respiratory: No Immunizations Current: Yes Migraines: No Myocardial Infarction: No Pancreatitis: Yes Renal Failure: No Seizures: No Sleep Apnea: No Thyroid Disease: Yes Ulcer: No PNEUMOCCOCAL Vaccine (Year): 3 : 5 Para: 4 : 1 Tubal Ligation: Yes (2003) Past Surgical History Abdominal Surgery: Yes (PANCREATIC SURGERY) AICD: No Appendectomy: No Cardiac Surgery: No Section: Yes (X 4) Cholecystectomy: No Ear Surgery: No Endocrine Surgery: No Eye Surgery: No Gynecologic Surgery: Yes ( X 4) Joint Replacement: No Oral Surgery: No Pacemaker: No Thoracic Surgery: No Tonsillectomy: Yes Other Surgery: Yes Social History Alcohol Use: No Tobacco Use: No Substance Use: No Allergies-Medications (Allergen,Severity, Reaction): Coded Allergies: No Known Allergies (Verified Adverse Reaction, Unknown, 05/13/17) Reported Meds & Prescriptions Reported Meds & Active Scripts Active Reported Fluticasone Nasal [place] 50 Mcg/Act Naspr 50 Mcg EACH NARE BID 50 mcg/spray Fexofenadine (Fexofenadine HCl) 180 Mg Tab 180 Mg PO DAILY PRN Zocor (Simvastatin) 20 Mg Tab 20 Mg PO DAILY Levothyroxine (Levothyroxine Sodium) 75 Mcg Tab 75 Mcg PO DAILY Review of Systems Except as stated in HPI: all other systems reviewed are Neg Physical Exam Narrative GENERAL: Well-developed, well-nourished, no apparent distress. SKIN: Focused skin assessment warm/dry. No rash. HEAD: Atraumatic. Normocephalic. EYES: Pupils equal and round. No scleral icterus. No injection or drainage. ENT: Mucous membranes pink and moist. NECK: Trachea midline. No JVD. CARDIOVASCULAR: Regular rate and rhythm. No murmur appreciated. RESPIRATORY: No accessory muscle use. Clear to auscultation. Breath sounds equal bilaterally. GASTROINTESTINAL: Abdomen soft, non-tender, nondistended. MUSCULOSKELETAL: No obvious deformities. No clubbing. No cyanosis. No edema. Mild left flank/CVA tenderness. No right CVA tenderness. No midline vertebral step-off or tenderness. NEUROLOGICAL: Awake and alert. No obvious cranial nerve deficits. Motor grossly within normal limits. Normal speech. PSYCHIATRIC: Appropriate mood and affect; insight and judgment normal. Data Data Last Documented VS Vital Signs Date Time Temp Pulse Resp B/P (MAP) Pulse Ox O2 Delivery O2 Flow Rate FiO2 07/15/17 22:00 97.6 84 18 92/54 (67) 97 Room Air Orders Orders Sepsis Workup Initiated (07/15/17 ) Complete Blood Count With Diff (07/15/17 18:03) Comprehensive Metabolic Panel (07/15/17 18:03) Lactic Acid Sepsis Protocol (07/15/17 18:03) Urinalysis - C+S If Indicated (07/15/17 18:03) Influenzae A/B Antigen (07/15/17 18:03) Chest, Pa & Lat (07/15/17 18:03) Acetaminophen (Tylenol) (07/15/17 18:15) Lipase (07/15/17 18:03) Ct Abd/Pel W Iv Contrast(Rout) (07/15/17 20:54) Iv Access Insert/Monitor (07/15/17 20:54) Ecg Monitoring (07/15/17 20:54) Oximetry (07/15/17 20:54) Ondansetron Inj (Zofran Inj) (07/15/17 21:00) Sodium Chlor 0.9% 1000 Ml Inj (Ns 1000 M (07/15/17 20:54) Sodium Chloride 0.9% Flush (Ns Flush) (07/15/17 21:00) Morphine Inj (Morphine Inj) (07/15/17 21:00) Oseltamivir (Tamiflu) (07/15/17 21:00) Sodium Chlor 0.9% 1000 Ml Inj (Ns 1000 M (07/15/17 21:15) Ketorolac Inj (Toradol Inj) (07/15/17 21:15) Urine Culture (07/15/17 21:00) Ceftriaxone Inj (Rocephin Inj) (07/15/17 21:45) Potassium Chloride (Kcl) (07/15/17 21:45) Iohexol 350 Inj (Omnipaque 350 Inj) (07/15/17 22:08) Sodium Chlor 0.9% 1000 Ml Inj (Ns 1000 M (07/15/17 22:45) Labs Laboratory Tests Test 07/15/17 19:01 07/15/17 21:00 White Blood Count 7.9 TH/MM3 Red Blood Count 4.32 MIL/MM3 Hemoglobin 11.8 GM/DL Hematocrit 35.1 % Mean Corpuscular Volume 81.3 FL Mean Corpuscular Hemoglobin 27.4 PG Mean Corpuscular Hemoglobin Concent 33.6 % Red Cell Distribution Width 13.7 % Platelet Count 228 TH/MM3 Mean Platelet Volume 7.9 FL Neutrophils (%) (Auto) 78.8 % Lymphocytes (%) (Auto) 9.9 % Monocytes (%) (Auto) 10.5 % Eosinophils (%) (Auto) 0.3 % Basophils (%) (Auto) 0.5 % Neutrophils # (Auto) 6.2 TH/MM3 Lymphocytes # (Auto) 0.8 TH/MM3 Monocytes # (Auto) 0.8 TH/MM3 Eosinophils # (Auto) 0.0 TH/MM3 Basophils # (Auto) 0.0 TH/MM3 CBC Comment DIFF FINAL Differential Comment Blood Urea Nitrogen 14 MG/DL Creatinine 0.97 MG/DL Random Glucose 112 MG/DL Total Protein 8.5 GM/DL Albumin 3.9 GM/DL Calcium Level 8.3 MG/DL Alkaline Phosphatase 123 U/L Aspartate Amino Transf (AST/SGOT) 41 U/L Alanine Aminotransferase (ALT/SGPT) 44 U/L Total Bilirubin 0.4 MG/DL Sodium Level 135 MEQ/L Potassium Level 3.1 MEQ/L Chloride Level 102 MEQ/L Carbon Dioxide Level 26.5 MEQ/L Anion Gap 7 MEQ/L Estimat Glomerular Filtration Rate 61 ML/MIN Lactic Acid Level 0.9 mmol/L Lipase 173 U/L Urine Color YELLOW Urine Turbidity HAZY Urine pH 6.5 Urine Specific [place] 1.017 Urine Protein TRACE mg/dL Urine Glucose (UA) NEG mg/dL Urine Ketones TRACE mg/dL Urine Occult Blood MOD Urine Nitrite NEG Urine Bilirubin NEG Urine Urobilinogen LESS THAN 2.0 MG/DL Urine Leukocyte Esterase TRACE Urine RBC 41 /hpf Urine WBC 7 /hpf Urine Squamous Epithelial Cells 8 /hpf Urine Bacteria MANY /hpf Microscopic Urinalysis Comment CATH-CULTURE IND MDM Medical Decision Making Medical Screen Exam Complete: Yes Emergency Medical Condition: Yes Medical Record Reviewed: Yes Differential Diagnosis Pyelonephritis, nephrolithiasis, UTI, cystitis, colitis, pneumonia, influenza Narrative Course Initial vital signs show heart rate 116, blood pressure 136/69, pulse ox 98% on room air, tympanic temp of 103.6F. CBC is essentially unremarkable. CMP is remarkable for potassium 3.1, otherwise unremarkable. Lipase is 173. UA is suggestive of UTI. The patient was written for a dose of 1 g of IV Rocephin. Influenza B-positive. Chest x-ray: No acute disease. CT abdomen pelvis: CONCLUSION: 1. No acute abnormality. 2. 3.8 cm cystic structure involving the lower uterine segment/cervix. This likely relates to a nabothian cyst. 3. Colonic diverticulosis. 4. Prior cholecystectomy. Patient was made aware of all findings. She was given 2 L of normal saline IV, IV Rocephin, and oral Tamiflu. Her initial blood pressure was 136 systolic. After receiving 2 L of normal saline IV at had dropped to 92/68. She is no longer tachycardic. She does feel little bit improved. Patient has signs of sepsis. She'll be given a third liter normal saline IV and admitted for further treatment and evaluation. Case discussed with hospitalist Dr. Tsai who will admit the patient to her service. Diagnosis Primary Impression: Pyelonephritis Additional Impressions: Influenza B Sepsis Qualified Codes: A41.9 - Sepsis, unspecified organism Admitting Information Admitting Physician Requests: Admit Jose Fernandez MD Jul 15, 2017 21:15
[2017-07-15 21:30] LABS: BACTERIA, URINE MANY /hpf; BILIRUBIN, URINE NEG (NEG); BLOOD, URINE MOD (NEG); GLUCOSE,URINE NEG (NEG); KETONE, URINE TRACE mg/dL (NEG); NITRITE,URINE NEG (NEG); PH, URINE 6.5 (5.0-8.5); SQUAMOUS EPITHELIAL CELL URINE 8 /hpf (0-5); URINE COLOR YELLOW (YELLW/STRAW); URINE LEUKOCYTE ESTERASE TRACE (NEG)
[2017-07-15] MEDS ORDERED: cefTRIAXone INJ 1,000 MG in SODIUM CHLORIDE 0.9% INJ 100 ML IV ONE (21:45)
[2017-07-15] MEDS ORDERED: POTASSIUM CHLORIDE 20 MEQ CONTROLLED RELEASE TAB PO ONE (21:45)
[2017-07-15 22:00] VITALS: BP 92/54; PULSE 84; RESP 18; TEMP 97.6; O2SAT 97
[2017-07-15] MEDS ORDERED: IOHEXOL 350 MG/ML 10 ML VIAL (for RAD DIAG) IVCONTRAST ONE (22:08)
--- NOTE | 2017-07-15 22:10 | RADRPT ---
EXAM DATE/TIME: 07/15/2017 21:32 [facility] COMPARISON: CT ABDOMEN & PELVIS W CONTRAST, February 11, 2017, 1:15. INDICATIONS : Bilateral lower quadrant pain with fever. IV CONTRAST: 80 cc Omnipaque 350 (iohexol) IV ORAL CONTRAST: No oral contrast ingested. RADIATION DOSE: 7.04 CTDIvol (mGy) MEDICAL HISTORY : Pancreatitis. Renal calculi. SURGICAL HISTORY : Appendectomy. Tubal ligation.Cholecystectomy. ENCOUNTER: Initial ACUITY: 1 day PAIN SCALE: 6/10 LOCATION: Bilateral lower quadrant TECHNIQUE: Volumetric scanning of the abdomen and pelvis was performed. Using automated exposure control and ad justment of the mA and/or kV according to patient size, radiation dose was kept as low as reasonably achievable to obtain optimal diagnostic quality images. DICOM format image data is available electro nically for review and comparison. FINDINGS: LOWER LUNGS: Mild bibasilar atelectasis. No appreciable lung nodules seen. LIVER: Homogeneous density without lesion. There is no dilation of the biliary tree. Gallbladder is surgica lly absent. SPLEEN: Normal size without lesion. PANCREAS: Within normal limits. KIDNEYS: Normal in size and shape. There is no mass, stone or hydronephrosis. ADRENAL GLANDS: Within normal limits. VASCULAR: There is no aortic aneurysm. BOWEL/MESENTERY: The stomach, small bowel, and colon demonstrate no acute abnormality. There is no free intraperitone al air or fluid. A few scattered colonic diverticuli without acute inflammation. ABDOMINAL WALL: Within normal limits. RETROPERITONEUM: There is no lymphadenopathy. BLADDER: No wall thickening or mass. REPRODUCTIVE: 3.8 cm cyst involving the lower uterine segment/cervical region. Hounsfield units are 7. This is slig htly larger from the prior study. The uterus is just left of midline. No adnexal mass or fluid collec tion. INGUINAL: There is no lymphadenopathy or hernia. MUSCULOSKELETAL: Within normal limits for patient age. CONCLUSION: 1. No acute abnormality. 2. 3.8 cm cystic structure involving the lower uterine segment/cervix. This likely relates to a nabot hian cyst. 3. Colonic diverticulosis. 4. Prior cholecystectomy. Carlos Guillory Jr., MD on July 15, 2017 at 22:03 Board Certified Radiologist. This report was verified electronically.
[2017-07-15] MEDS ORDERED: NALOXONE HCL 0.4 MG/ML AMP IV PUSH PRN (23:00)
[2017-07-15] MEDS: SODIUM CHLOR 0.9% 1000 ML INJ 1,000 ML IV SCH (23:18)
[2017-07-15 23:43] VITALS: PULSE 68
[2017-07-15 23:50] VITALS: BP 78/53; PULSE 68; RESP 18; TEMP 98.6; O2SAT 97
[2017-07-16 04:00] VITALS: BP 88/71; PULSE 64; PULSE 65; RESP 18; TEMP 98.1; O2SAT 96
[2017-07-16 06:07] LABS: AUTOMATED NEUTROPHIL # 2.1 TH/MM3 (1.8-7.7); BASOPHIL % 0.5 % (0.0-2.0); EOSINOPHIL % 0.6 % (0.0-4.0); HEMATOCRIT 31.2 % (35.0-46.0); HEMOGLOBIN 10.8 GM/DL (11.6-15.3); LYMPH % 31.4 % (9.0-44.0); LYMPHOCYTE # 1.3 TH/MM3 (1.0-4.8); MEAN CELL VOLUME 82.8 FL (80.0-100.0); MEAN CORPUSCULAR HEMOGLOBIN 28.6 PG (27.0-34.0); MEAN CORPUSCULAR HGB CONC 34.5 % (32.0-36.0); MEAN PLATELET VOLUME 7.8 FL (7.0-11.0); MONOCYTE # 0.7 TH/MM3 (0-0.9); NEUT % 50.5 % (16.0-70.0); PLATELET COUNT 197 TH/MM3 (150-450); RED BLOOD COUNT 3.77 MIL/MM3 (4.00-5.30); RED CELL DISTRIBUTION WIDTH 13.8 % (11.6-17.2); WHITE BLOOD COUNT 4.2 TH/MM3 (4.0-11.0)
--- NOTE | 2017-07-16 06:19 | HHI.HP ---
[facility] Donny Reyes MD Admission Diagnosis pyelonephritis, influenza B, sepsis Diagnoses: Chief Complaint: fever, back pain Travel History International Travel<30 Days: No Contact w/Intl Traveler <30 Da: No Traveled to Known Affected Are: No Sepsis Criteria SIRS Criteria (2 or more): Temp > 100.9 or < 96.8, Heart rate over 90 Sepsis Criteria (SIRS+source): Infect source susp/known History of Present Illness 52 y/o female with a history of hypothyroid, dyslipidemia, kidney stones and anxiety presented to the ED with back pain and fatigue. Patient states 2 days ago she developed throbbing constant flank pain with radiation to her back, 7/10 , worse with movement and urination with associated fever, chills, and weakness. She also complains of a dry cough, and congestion. She denies any chest pain or sob. She denies any burning with urination. Review of Systems Except as stated in HPI: all other systems reviewed are Neg Past Family Social History Past Medical History Dyslipidemia Anxiety Kidney stones Hypothyroid Past Surgical History c section cholecystomy Tonsillectomy Reported Medications Reported Meds & Active Scripts Active No Active Prescriptions or Reported Medications Allergies: Coded Allergies: No Known Allergies (Verified Allergy, Unknown, 07/15/17) Active Ordered Medications Current Medications Medications (Trade) Dose Ordered Sig/[place] Route Start Time Stop Time Status Last Admin (NS Flush) 2 ml UNSCH PRN IV FLUSH 07/15/17 23:00 (NS Flush) 2 ml BID IV FLUSH 07/16/17 09:00 (Narcan Inj) 0.4 mg UNSCH PRN IV PUSH 07/15/17 23:00 Sodium Chloride 1,000 ml @ 100 mls/hr Q10H IV 07/15/17 23:00 07/15/17 23:18 (Tamiflu) 75 mg BID PO 07/16/17 09:00 Ceftriaxone Sodium 1000 mg/ Sodium Chloride 100 ml @ 200 mls/hr Q24H IV 07/16/17 09:00 Family History Patient denies any family history, no heart disease or cancer Social History Patient denies any tobacco, alcohol or drug use. Physical Exam Vital Signs Vital Signs Date Time Temp Pulse Resp B/P (MAP) Pulse Ox O2 Delivery O2 Flow Rate FiO2 07/16/17 04:00 64 07/16/17 04:00 Room Air 07/16/17 04:00 98.1 65 18 88/71 (77) 96 07/15/17 23:50 98.6 68 18 78/53 (61) 97 07/15/17 23:50 Room Air 07/15/17 23:43 68 07/15/17 22:00 97.6 84 18 92/54 (67) 97 Room Air 07/15/17 21:00 87 18 100/56 (71) 97 Room Air 07/15/17 17:45 103.6 116 22 136/69 (91) 98 Physical Exam GENERAL: This is a well-nourished, well-developed patient, in no apparent distress. SKIN: No rashes, ecchymoses or lesions. Cool and dry. HEAD: Atraumatic. Normocephalic. EYES: Pupils equal round and reactive. ENT: Nose without bleeding, purulent drainage or septal hematoma. Airway patent. NECK: Trachea midline. No JVD or lymphadenopathy. Supple, nontender, no meningeal signs. CARDIOVASCULAR: Regular rate and rhythm without murmurs, gallops, or rubs. RESPIRATORY: Diminished breath sounds. No wheezes, rales, or rhonchi. GASTROINTESTINAL: Abdomen soft, non-tender, nondistended. CVA tenderness MUSCULOSKELETAL: Bilateral lower extremity +1 edema. No joint tenderness, effusion, or edema noted. No calf tenderness. NEUROLOGICAL: Awake and alert. Motor and sensory grossly within normal limits.Normal speech. Laboratory Laboratory Tests Test 07/15/17 19:01 07/15/17 21:00 07/16/17 05:44 07/16/17 05:49 White Blood Count 7.9 4.2 Red Blood Count 4.32 3.77 Hemoglobin 11.8 10.8 Hematocrit 35.1 31.2 Mean Corpuscular Volume 81.3 82.8 Mean Corpuscular Hemoglobin 27.4 28.6 Mean Corpuscular Hemoglobin Concent 33.6 34.5 Red Cell Distribution Width 13.7 13.8 Platelet Count 228 197 Mean Platelet Volume 7.9 7.8 Neutrophils (%) (Auto) 78.8 50.5 Lymphocytes (%) (Auto) 9.9 31.4 Monocytes (%) (Auto) 10.5 17.0 Eosinophils (%) (Auto) 0.3 0.6 Basophils (%) (Auto) 0.5 0.5 Neutrophils # (Auto) 6.2 2.1 Lymphocytes # (Auto) 0.8 1.3 Monocytes # (Auto) 0.8 0.7 Eosinophils # (Auto) 0.0 0.0 Basophils # (Auto) 0.0 0.0 CBC Comment DIFF FINAL DIFF FINAL Differential Comment Blood Urea Nitrogen 14 Creatinine 0.97 Random Glucose 112 Total Protein 8.5 Albumin 3.9 Calcium Level 8.3 Alkaline Phosphatase 123 Aspartate Amino Transf (AST/SGOT) 41 Alanine Aminotransferase (ALT/SGPT) 44 Total Bilirubin 0.4 Sodium Level 135 Potassium Level 3.1 Chloride Level 102 Carbon Dioxide Level 26.5 Anion Gap 7 Estimat Glomerular Filtration Rate 61 Lactic Acid Level 0.9 Lipase 173 Urine Color YELLOW Urine Turbidity HAZY Urine pH 6.5 Urine Specific [place] 1.017 Urine Protein TRACE Urine Glucose (UA) NEG Urine Ketones TRACE Urine Occult Blood MOD Urine Nitrite NEG Urine Bilirubin NEG Urine Urobilinogen LESS THAN 2.0 Urine Leukocyte Esterase TRACE Urine RBC 41 Urine WBC 7 Urine Squamous Epithelial Cells 8 Urine Bacteria MANY Microscopic Urinalysis Comment CATH-CULTURE IND Date/Time Source Procedure Growth Status 07/15/17 19:01 Nasal Aspirate Influenza Types A,B Antigen (LAISHA) - Final Positive For Flu B Antigen Complete 07/15/17 21:00 Urine Clean Catch Urine Culture Pending Received Result Diagram: 07/16/17 0549 07/15/17 190 Imaging Last Impressions Abdomen/Pelvis CT 07/15/172053 Signed Impressions: Service Date/Time: Saturday, July 15, 2017 21:32 - CONCLUSION: 1. No acute abnormality. 2. 3.8 cm cystic structure involving the lower uterine segment/cervix. This likely relates to a nabothian cyst. 3. Colonic diverticulosis. 4. Prior cholecystectomy. Carlos Guillory Jr., MD Chest X-Ray 07/15/17 1803 Signed Impressions: Service Date/Time: Saturday, July 15, 2017 18:22 - CONCLUSION: No acute disease. MD Franklyn Hernandez Jr. VTE Risk Assessment Caprini VTE Risk Assessment: No/Low Risk (score <= 1) Caprini Risk Assessment Model Point Value = 1 Point Value = 2 Point Value = 3 Point Value = 5 Age 41-60 Minor surgery BMI > 25 kg/m2 Swollen legs Varicose veins or History of unexplained or recurrent spontaneous Oral contraceptives or hormone replacement Sepsis (< 1 month) Serious lung disease, including pneumonia (< 1 month) Abnormal pulmonary function Acute myocardial infarction Congestive heart failure (< 1 month) History of inflammatory bowel disease Medical patient at bed rest Age 61-74 Arthroscopic surgery Major open surgery (> 45 min) Laparoscopic surgery (> 45 min) Malignancy Confined to bed (> 72 hours) Immobilizing plaster cast Central venous access Age >= 75 History of VTE Family history of VTE Factor V Leiden Prothrombin [id number] Lupus anticoagulant Anticardiolipin antibodies Elevated serum homocysteine Heparin-induced thrombocytopenia Other congenital or acquired thrombophilia Stroke (< 1 month) Elective arthroplasty Hip, pelvis, or leg fracture Acute spinal cord injury (< 1 month) Prophylaxis Regimen Total Risk Factor Score Risk Level Prophylaxis Regimen 0-1 Low Early ambulation 2 Moderate Order ONE of the following: *Sequential Compression Device (SCD) *Heparin 5000 units SQ BID 3-4 Higher Order ONE of the following medications: *Heparin 5000 units SQ TID *Enoxaparin/Lovenox 40 mg SQ daily (WT < 150 kg, CrCl > 30 mL/min) *Enoxaparin/Lovenox 30 mg SQ daily (WT < 150 kg, CrCl > 10-29 mL/min) *Enoxaparin/Lovenox 30 mg SQ BID (WT < 150 kg, CrCl > 30 mL/min) AND/OR *Sequential Compression Device (SCD) 5 or more Highest Order ONE of the following medications: *Heparin 5000 units SQ TID (Preferred with Epidurals) *Enoxaparin/Lovenox 40 mg SQ daily (WT < 150 kg, CrCl > 30 mL/min) *Enoxaparin/Lovenox 30 mg SQ daily (WT < 150 kg, CrCl > 10-29 mL/min) *Enoxaparin/Lovenox 30 mg SQ BID (WT < 150 kg, CrCl > 30 mL/min) AND *Sequential Compression Device (SCD) Assessment and Plan Problem List: (1) Pyelonephritis ICD Code: N12 - Tubulo-interstitial nephritis, not specified as acute or chronic Status: Acute (2) Sepsis ICD Code: A41.9 - Sepsis, unspecified organism Status: Acute (3) Influenza B ICD Code: J10.1 - Influenza due to other identified influenza virus with other respiratory manifestations Status: Acute Assessment and Plan 52 y/o female with a history of hypothyroid, dyslipidemia, kidney stones and anxiety presented to the ED with back pain and fatigue. Sepsis with pyelonephritis, temp 103.6, HR 116 source pyelonephritis UA abnormal with +blood -Rocephin IV daily -Culture pending -IVF for hydration -Pain management with [place] and IV Toradol Influenza B nasal aspirate positive for flu b antigen -Tamiflu BID -Duonebs. Hypokalemia, potassium 3.1 -Supplementation ordered, trend and replace as needed DVT prophylaxis: SCDs Discussed Condition With Patient Physician Certification 2 Midnight Certification Type: Admission for Inpatient Services Order for Inpatient Services The services are ordered in accordance with Medicare regulations or non- Medicare payer requirements, as applicable. In the case of services not specified as inpatient-only, they are appropriately provided as inpatient services in accordance with the 2-midnight benchmark. Estimated LOS (days): 2 days is the estimated time the patient will need to remain in the hospital, assuming treatment plan goals are met and no additional complications. Post-Hospital Plan: Home Problem Qualifiers (1) Sepsis: Qualified Codes: A41.9 - Sepsis, unspecified organism Blanquita Srivastava Jul 16, 2017 06:19
[2017-07-16 06:34] LABS: BICARBONATE 21.6 MEQ/L (21.0-32.0); CALCIUM 7.1 MG/DL (8.5-10.1); CREATININE 0.76 MG/DL (0.50-1.00)
[2017-07-16] MEDS ORDERED: KETOROLAC TROMETHAMINE 30 MG/ML (IVP) VIAL IV PUSH PRN (06:45)
[2017-07-16 06:57] LABS: TOTAL PROTEIN 6.9 GM/DL (6.4-8.2)
[2017-07-16 07:09] LABS: CALCIUM-PROTEIN CORRECTED 7.2 MG/DL (8.5-10.1)
[2017-07-16] MEDS: RESP: ALBUTEROL 2.5 MG/IPRATROPIUM 0.5 MG NEB (SCH) NEB ×4 (07:26→21:33)
[2017-07-16 08:00] VITALS: BP 117/69; PULSE 87; RESP 18; TEMP 97.8; O2SAT 96
[2017-07-16] MEDS ORDERED: CALCIUM GLUCONATE INJ 1 GM in SODIUM CHLORIDE 0.9% INJ 100 ML IV ONE (08:00)
[2017-07-16] MEDS: SODIUM CHLORIDE 0.9% FLUSH 10 ML FLUSH IV FLUSH SCH ×2 (08:37→20:13)
[2017-07-16] MEDS: cefTRIAXone INJ 1,000 MG in SODIUM CHLORIDE 0.9% INJ 100 ML IV SCH (08:37)
[2017-07-16] MEDS: SODIUM CHLOR 0.9% 1000 ML INJ 1,000 ML IV SCH ×2 (08:38→20:14)
[2017-07-16] MEDS: ACETAMINOPHEN/HYDROcodone 325 MG/5 MG TAB PO PRN ×2 (08:40→14:16)
[2017-07-16] MEDS: OSELTAMIVIR PHOSPHATE 75 MG CAP PO SCH ×2 (09:39→20:12)
[2017-07-16 12:00] VITALS: BP 102/64; PULSE 90; RESP 18; TEMP 98.8; O2SAT 96
[2017-07-16 14:00] VITALS: BP 136/65; PULSE 106; RESP 19; TEMP 101.7; O2SAT 95
--- NOTE | 2017-07-16 14:13 | HHI.PR ---
Addendum to Inpatient Note Additional Information Patient seen/examined. Patient continues to have right sided flank pain. She had low blood pressures but repeat BPs were within normal range. We will continue Ceftriaxone and follow C&S. Vandana Hager DO Jul 16, 2017 2:13 pm
[2017-07-16] MEDS ORDERED: HYDROmorphone HCL PF 2 MG/ML VIAL IV PUSH PRN (14:45)
[2017-07-16] MEDS ORDERED: ONDANSETRON HCL 4 MG/2 ML VIAL IV PUSH PRN (14:45)
[2017-07-16] MEDS ORDERED: ACETAMINOPHEN 500 MG CPLT PO PRN (14:45)
[2017-07-16 16:00] VITALS: BP 110/53; PULSE 99; RESP 20; TEMP 100.9; O2SAT 94
[2017-07-16 20:00] VITALS: BP 101/69; PULSE 92; RESP 18; TEMP 99.6; O2SAT 95
[2017-07-16] MEDS: oxyCODONE/ACETAMINOPHEN 7.5 MG/325 MG TAB PO PRN (20:12)
[2017-07-17] VITALS: BP 100/55; PULSE 97; RESP 18; TEMP 100.3; O2SAT 94
[2017-07-17 04:00] VITALS: BP 103/56; PULSE 84; RESP 16; TEMP 100; O2SAT 94
[2017-07-17] MEDS: RESP: ALBUTEROL 2.5 MG/IPRATROPIUM 0.5 MG NEB (SCH) NEB ×7 (04:00→23:53)
[2017-07-17] MEDS: SODIUM CHLOR 0.9% 1000 ML INJ 1,000 ML IV SCH ×3 (05:47→21:22)
[2017-07-17 08:00] VITALS: BP 117/54; PULSE 80; RESP 20; TEMP 98.3; O2SAT 94
[2017-07-17] MEDS: cefTRIAXone INJ 1,000 MG in SODIUM CHLORIDE 0.9% INJ 100 ML IV SCH (08:31)
[2017-07-17] MEDS: SODIUM CHLORIDE 0.9% FLUSH 10 ML FLUSH IV FLUSH SCH ×2 (08:32→21:00)
[2017-07-17] MEDS: OSELTAMIVIR PHOSPHATE 75 MG CAP PO SCH ×2 (08:32→21:22)
[2017-07-17] MEDS: oxyCODONE/ACETAMINOPHEN 7.5 MG/325 MG TAB PO PRN (08:42)
--- NOTE | 2017-07-17 10:24 | HHI.PR ---
Subjective Remarks Follow up for pyelonephritis, flu. Patient is sitting in her chair. She complains of lower back pain which has been present for about a month but worsened recently. Tolerating diet well. Objective Vitals Vital Signs Date Time Temp Pulse Resp B/P (MAP) Pulse Ox O2 Delivery O2 Flow Rate FiO2 07/17/17 08:00 98.3 80 20 117/54 (75) 94 07/17/17 04:00 100.0 84 16 103/56 (72) 94 07/17/17 00:00 100.3 97 18 100/55 (70) 94 07/16/17 20:00 99.6 92 18 101/69 (80) 95 07/16/17 16:00 100.9 99 20 110/53 (72) 94 07/16/17 14:00 101.7 106 19 136/65 (88) 95 07/16/17 13:55 07/16/17 12:00 98.8 90 18 102/64 (77) 96 I/O 07/16/17 07/16/17 07/16/17 07/17/17 07/17/17 07/17/17 07:00 15:00 23:00 07:00 15:00 23:00 Intake Total 3100 ml 300 ml 0 ml 1000 ml 120 ml Balance 3100 ml 300 ml 0 ml 1000 ml 120 ml Intake Oral 120 ml IV Total 3100 ml 300 ml 0 ml 1000 ml Result Diagram: 07/16/17 0549 07/16/17 0544 Imaging Last Impressions Abdomen/Pelvis CT 07/15/172053 Signed Impressions: Service Date/Time: Saturday, July 15, 2017 21:32 - CONCLUSION: 1. No acute abnormality. 2. 3.8 cm cystic structure involving the lower uterine segment/cervix. This likely relates to a nabothian cyst. 3. Colonic diverticulosis. 4. Prior cholecystectomy. Carlos Guillory Jr., MD Chest X-Ray 07/15/17 1803 Signed Impressions: Service Date/Time: Saturday, July 15, 2017 18:22 - CONCLUSION: No acute disease. Carlos Guillory Jr., MD Objective Remarks GENERAL: AOX3, NAD. SKIN: Warm and dry. HEAD: Normocephalic. EYES: No scleral icterus. No injection or drainage. NECK: Supple, trachea midline. No JVD or lymphadenopathy. CARDIOVASCULAR: Regular rate and rhythm without murmurs, gallops, or rubs. RESPIRATORY: Breath sounds equal bilaterally. No accessory muscle use. GASTROINTESTINAL: Abdomen soft, non-tender, nondistended. MUSCULOSKELETAL: No cyanosis, or edema. Tenderness to palpation over lower back BACK: Nontender without obvious deformity. No CVA tenderness. A/P Problem List: (1) Pyelonephritis ICD Code: N12 - Tubulo-interstitial nephritis, not specified as acute or chronic Status: Acute (2) Sepsis ICD Code: A41.9 - Sepsis, unspecified organism Status: Acute (3) Influenza B ICD Code: J10.1 - Influenza due to other identified influenza virus with other respiratory manifestations Status: Acute Assessment and Plan 52 y/o female with a history of hypothyroid, dyslipidemia, kidney stones and anxiety presented to the ED with back pain and fatigue. Sepsis with pyelonephritis, temp 103.6, HR 116 source pyelonephritis UA abnormal with +blood -Rocephin 1 g IV daily -Culture growing E. Coli sensitive to Augmentin, Cephalosporin. -IVF for hydration -Pain management with Acetaminophen, Percocet and Dilaudid. Will titrate down pain medications Influenza B nasal aspirate positive for flu b antigen -Tamiflu BID -Duonebs. Hypokalemia, potassium 3.1 Hypocalcemia - Replaced potassium and Calcium. K+ corrected to 3.9. Low back pain - this pain has been present for over a month. If patient continues to have fever and pain, we will consider MRI of L spine. Full code. SCDs If patient remains afebrile, we anticipate discharge in 1-2 days. Problem Qualifiers (1) Sepsis: Qualified Codes: A41.9 - Sepsis, unspecified organism Vandana Hager DO Jul 17, 2017 10:24
[2017-07-17 12:00] VITALS: BP 105/57; PULSE 76; RESP 19; TEMP 97; O2SAT 94
[2017-07-17 16:00] VITALS: BP 94/58; PULSE 66; RESP 20; TEMP 97.8; O2SAT 100
[2017-07-17 20:00] VITALS: BP 125/66; PULSE 79; RESP 20; TEMP 97.4; O2SAT 97
[2017-07-18] VITALS: BP 112/70; PULSE 80; RESP 20; TEMP 97; O2SAT 94
[2017-07-18 00:11] VITALS: PULSE 78
[2017-07-18] MEDS: RESP: ALBUTEROL 2.5 MG/IPRATROPIUM 0.5 MG NEB (SCH) NEB ×3 (03:30→12:17)
[2017-07-18 08:00] VITALS: BP 103/66; PULSE 71; RESP 19; TEMP 97.6; O2SAT 96
[2017-07-18] MEDS: SODIUM CHLORIDE 0.9% FLUSH 10 ML FLUSH IV FLUSH SCH (09:00)
[2017-07-18] MEDS: OSELTAMIVIR PHOSPHATE 75 MG CAP PO SCH (09:03)
[2017-07-18] MEDS: cefTRIAXone INJ 1,000 MG in SODIUM CHLORIDE 0.9% INJ 100 ML IV SCH (09:04)
[2017-07-18] MEDS ORDERED: AUGM500T7 PO (09:54)
[2017-07-18] MEDS ORDERED: OSEL75 PO (09:54)
--- NOTE | 2017-07-18 09:56 | HHI.DS ---
Discharge Summary Admission Date Jul 15, 2017 at 22:57 Discharge Date: Jul 18, 2017 Admitting Diagnosis pyelonephritis, influenza B, sepsis (1) Pyelonephritis ICD Code: N12 - Tubulo-interstitial nephritis, not specified as acute or chronic Diagnosis: Principal Status: Acute (2) Sepsis ICD Code: A41.9 - Sepsis, unspecified organism Diagnosis: Principal Status: Acute (3) Influenza B ICD Code: J10.1 - Influenza due to other identified influenza virus with other respiratory manifestations Diagnosis: Principal Status: Acute Procedures None. Brief History - From Admission 52 y/o female with a history of hypothyroid, dyslipidemia, kidney stones and anxiety presented to the ED with back pain and fatigue. Patient states 2 days ago she developed throbbing constant flank pain with radiation to her back, 7/10 , worse with movement and urination with associated fever, chills, and weakness. She also complains of a dry cough, and congestion. She denies any chest pain or sob. She denies any burning with urination. CBC/BMP: 07/16/17 0549 07/16/17 0544 Significant Findings Laboratory Tests Test 07/15/17 19:01 07/15/17 21:00 07/16/17 05:44 07/16/17 05:49 Neutrophils (%) (Auto) 78.8 % (16.0-70.0) Monocytes (%) (Auto) 10.5 % (0.0-8.0) 17.0 % (0.0-8.0) Lymphocytes # (Auto) 0.8 TH/MM3 (1.0-4.8) Random Glucose 112 MG/DL (74-106) Total Protein 8.5 GM/DL (6.4-8.2) Calcium Level 8.3 MG/DL (8.5-10.1) 7.1 MG/DL (8.5-10.1) Alkaline Phosphatase 123 U/L (45-117) Aspartate Amino Transf (AST/SGOT) 41 U/L (15-37) Sodium Level 135 MEQ/L (136-145) Potassium Level 3.1 MEQ/L (3.5-5.1) Estimat Glomerular Filtration Rate 61 ML/MIN (>89) 81 ML/MIN (>89) Urine Turbidity HAZY (CLEAR) Urine Ketones TRACE mg/dL (NEG) Urine Occult Blood MOD (NEG) Urine Leukocyte Esterase TRACE (NEG) Urine RBC 41 /hpf (0-3) Urine WBC 7 /hpf (0-5) Urine Bacteria MANY /hpf (NONE) Chloride Level 112 MEQ/L (98-107) Protein Corrected Calcium 7.2 MG/DL (8.5-10.1) Red Blood Count 3.77 MIL/MM3 (4.00-5.30) Hemoglobin 10.8 GM/DL (11.6-15.3) Hematocrit 31.2 % (35.0-46.0) Imaging Last Impressions Abdomen/Pelvis CT 07/15/[id number] Signed Impressions: Service Date/Time: Saturday, July 15, 2017 21:32 - CONCLUSION: 1. No acute abnormality. 2. 3.8 cm cystic structure involving the lower uterine segment/cervix. This likely relates to a nabothian cyst. 3. Colonic diverticulosis. 4. Prior cholecystectomy. Carlos Guillory Jr., MD Chest X-Ray 07/15/171802 Signed Impressions: Service Date/Time: Saturday, July 15, 2017 18:22 - CONCLUSION: No acute disease. Carlos Guillory Jr., MD PE at Discharge GENERAL: AOX3, NAD. SKIN: Warm and dry. HEAD: Normocephalic. EYES: No scleral icterus. No injection or drainage. NECK: Supple, trachea midline. No JVD or lymphadenopathy. CARDIOVASCULAR: Regular rate and rhythm without murmurs, gallops, or rubs. RESPIRATORY: Breath sounds equal bilaterally. No accessory muscle use. GASTROINTESTINAL: Abdomen soft, non-tender, nondistended. MUSCULOSKELETAL: No cyanosis, or edema. Tenderness to palpation over lower back BACK: Nontender without obvious deformity. No CVA tenderness. Pt update on day of discharge Patient is doing well. She is ambulating well, no significant pain. Has been afebrile. Wants to go home. Hospital Course 52 y/o female with a history of hypothyroid, dyslipidemia, kidney stones and anxiety presented to the ED with back pain and fatigue. Sepsis with pyelonephritis, temp 103.6, HR 116 source pyelonephritis UA abnormal with +blood -Rocephin 1 g IV daily - Will continue Augmentin on discharge. -Culture growing E. Coli sensitive to Augmentin, Cephalosporin. -IVF for hydration -Pain management with Acetaminophen, Percocet and Dilaudid while in-patient. Influenza B nasal aspirate positive for flu b antigen -Tamiflu BID -Duonebs. Hypokalemia, potassium 3.1 Hypocalcemia - Replaced potassium and Calcium. K+ corrected to 3.9. Low back pain - this pain has been present for over a month. If patient continues to have fever and pain, we will consider MRI of L spine. Full code. SCDs Pt Condition on Discharge: Good Discharge Disposition: Discharge Home Discharge Time: <= 30 minutes Discharge Instructions DIET: Follow Instructions for: As Tolerated, No Restrictions Activities you can perform: Regular-No Restrictions Follow up Referrals: PCP Follow-up - 1 Week New Medications: Amoxicillin-Clavulanate (Augmentin) 500-125 mg Tab 500 MG PO BID for Infection for 10 Days, #20 TAB 0 Refills Oseltamivir (Tamiflu) 75 Mg Cap 75 MG PO BID for Infection, #5 CAP Vandana Hager DO Jul 18, 2017 09:56
[2017-07-18 12:00] VITALS: BP 100/64; PULSE 73; RESP 20; TEMP 96.6; O2SAT 97
== END 2017-07-18 12:43 | disposition home or self-care (01) | DRG 872 ==
LOC: NEPD 17:44 → NEDA 22:57 → N07A 07-16 13:54
PROVIDERS: ADMIT Hospitalist; ATTEND Hospitalist
DX: A41.9 Sepsis, unspecified organism (principal); N12 Tubulo-interstitial nephritis, not specified as acute or chronic; B96.20 Unspecified Escherichia coli [E. coli] as the cause of diseases classified elsewhere; J10.1 Influenza due to other identified influenza virus with other respiratory manifestations; E78.5 Hyperlipidemia, unspecified; E03.9 Hypothyroidism, unspecified; F41.9 Anxiety disorder, unspecified; E87.6 Hypokalemia; Z87.442 Personal history of urinary calculi
CPT/HCPCS: 71046; 74177; 80048; 80053; 81001; 83605; 83690; 83735; 84155; 85025; 87040; 87077; 87086; 87186; 87804; 94640; 94664; 96361; 96374; 96375; J0610; J0696; J1885; J2270; J2405; J7030; Q9967